=== PATIENT | female | born 1950 | race Caucasian/White ===

== ENCOUNTER 2018-08-03 14:15 | Emergency (ER) | payer MEDICARE, BC ==
[2018-08-03] MEDS ORDERED: Sodium Chloride 0.9% 10 ML Syringe FLUSH PRN (14:36)
--- NOTE | 2018-08-03 15:03 | EDM.PDOC ---
ED HPI GENERAL MEDICAL PROBLEM - General Chief Complaint: General Stated Complaint: LOW HEMOGLOBIN Time Seen by Provider: 08/03/18 14:35 Source of Information: Reports: Patient, RN Notes Reviewed - History of Present Illness INITIAL COMMENTS - FREE TEXT/NARRATIVE: 67 year old female has been transferred here from clinic for further evaluation of anemia, dizziness, dyspnea and fatigue. She had been feeling more tired and fatigued for about the past 2 weeks. Was seen at [facility] last [place] 4 days ago by her provider, found to have hgb of 9.1. She than became more ill with watery diarrhea [place] evening last for about 2 days, now better today. She did have a follow up clinic visit today, hgb now down to 8.1. She is on coumadin with hx of mechanical heart valve replacement about 12 years ago. No recent black or tarry stools or obvious rectal bleeding. - Related Data Allergies Allergy/AdvReac Type Severity Reaction Status Date / Time codeine Allergy Hives Verified 08/03/18 14:31 lidocaine [From Lidoderm] Allergy Rash Verified 08/03/18 14:31 meperidine Allergy Hives Verified 08/03/18 14:31 penicillin V Allergy Cannot Verified 08/03/18 14:31 Remember prochlorperazine Allergy Respiratory Verified 08/03/18 14:31 Distress propoxyphene Allergy Hives Verified 08/03/18 14:31 fentanyl AdvReac Nausea and Verified 08/03/18 14:31 Vomiting sumatriptan AdvReac Nausea and Verified 08/03/18 14:31 Vomiting Home Meds: Home Meds Aspirin [Ecotrin] 81 mg PO DAILY 08/03/18 [History] Baclofen 20 mg PO BEDTIME 08/03/18 [History] Cholecalciferol (Vitamin D3) [Vitamin D3] 2,000 unit PO DAILY 08/03/18 [History] Cyanocobalamin (Vitamin B-12) [B-12] 1,000 mcg PO DAILY 08/03/18 [History] Escitalopram [Lexapro] 20 mg PO DAILY 08/03/18 [History] Fluticasone/Vilanterol [Breo Ellipta 100-25 MCG Inhalation Kit] 1 inh INH DAILY 08/03/18 [History] Wgjtbpuwln-Lhty-Sannofqzhq Ext 1 dose TOP DAILY 08/03/18 [History] Ondansetron [Ondansetron ODT] 4 mg PO Q6H 08/03/18 [History] Pantoprazole [ProTONIX] 40 mg PO BID 08/03/18 [History] Polyethylene Glycol [Polyox Wsr-301] 1 dose PO BEDTIME 08/03/18 [History] Warfarin [Coumadin] 5 mg PO DAILY 08/03/18 [History] clonazePAM [Klonopin] 2 mg PO DAILY PRN 08/03/18 [History] traMADol HCl [Tramadol HCl ER] 200 mg PO BEDTIME 08/03/18 [History] traMADol [Ultram] 100 mg PO TID 08/03/18 [History] Past Medical History Respiratory History: Reports: Asthma Gastrointestinal History: Reports: Other (See Below) Other Gastrointestinal History: abdominal pain Genitourinary History: Reports: Other (See Below) Other Genitourinary History: urinary frequency Musculoskeletal History: Reports: Arthritis, Back Pain, Chronic - Past Surgical History Cardiovascular Surgical History: Reports: Other (See Below) Other Cardiovascular Surgeries/Procedures: mechanical aortic valve placement GI Surgical History: Reports: Appendectomy, Other (See Below) Other GI Surgeries/Procedures: esophagus stretching Musculoskeletal Surgical History: Reports: Other (See Below) Other Musculoskeletal Surgeries/Procedures:: back surgery x3 Social & Family History - Tobacco Use Smoking Status *Q: Never Smoker Second Hand Smoke Exposure: No - Caffeine Use Caffeine Use: Reports: None - Recreational Drug Use Recreational Drug Use: No ED ROS GENERAL - Review of Systems Review Of Systems: See Below Constitutional: Denies: Fever, Chills, Diaphoresis HEENT: Denies: Throat Pain Respiratory: Reports: Shortness of Breath Cardiovascular: Denies: Chest Pain Endocrine: Reports: Fatigue GI/Abdominal: Reports: Diarrhea (for the last several days). Denies: Abdominal Pain, Nausea, Vomiting Musculoskeletal: Denies: Shoulder Pain, Arm Pain, Back Pain Neurological: Reports: Dizziness (roche standing and walking) ED EXAM, GENERAL - Physical Exam Exam: See Below General Appearance: Alert, No Apparent Distress Eye Exam: Bilateral Eye: PERRL Nose: Normal Inspection Throat/Mouth: Normal Inspection Head: Atraumatic Neck: Supple Respiratory/Chest: No Respiratory Distress, Lungs Clear, Normal Breath Sounds Cardiovascular: Regular Rate, Rhythm GI/Abdominal: Soft, Tender (mild tenderness L and R lower abd. ) Rectal (Female) Exam: Other (brown stool, strongly heme positive) Back Exam: No: CVA Tenderness (L), CVA Tenderness (R) Extremities: No: Pedal Edema, Leg Pain Neurological: Alert, Oriented, No Motor/Sensory Deficits Skin Exam: Pallor EKG INTERPRETATION EKG Date: 08/03/18 Rhythm: NSR [place]: Normal P-Wave: Present QRS: Normal ST-T: Normal Course - Vital Signs Last Recorded V/S: Last Vital Signs Temp 97.9 F 08/03/18 14:29 Pulse 83 08/03/18 14:29 Resp 18 08/03/18 14:29 BP 134/53 L 08/03/18 14:29 Pulse Ox 97 08/03/18 14:29 - Orders/Labs/Meds Orders: Active Orders 24 hr Category Date Time Status EKG 12 Lead [EKG Documentation Completion] [RC] STAT Care 08/03/18 14:39 Active Peripheral IV Care [RC] . DIRECTED Care 08/03/18 14:39 Active Chest 1V Frontal [CR] Stat Exams 08/03/18 15:07 Taken Peripheral IV Insertion Adult [OM.PC] Stat Oth 08/03/18 14:39 Ordered Labs: Laboratory Tests 08/03/18 08/03/18 08/03/18 Range/Units 15:05 15:05 15:05 WBC 4.88 (3.98-10.04) K/mm3 RBC 3.22 L (3.98-5.22) M/mm3 Hgb 8.1 L (11.2-15.7) gm/L Hct 27.4 L (34.1-44.9) % MCV 85.1 (79.4-94.8) fl MCH 25.2 L (25.6-32.2) pg MCHC 29.6 L (32.2-35.5) g/dl RDW Std Deviation 47.5 H (36.4-46.3) fL Plt Count 373 H (182-369) K/mm3 MPV 9.3 L (9.4-12.3) fl Neut % (Auto) 71.8 H (34.0-71.1) % Lymph % (Auto) 16.2 L (19.3-51.7) % [place] % (Auto) 10.0 (4.7-12.5) % Eos % (Auto) 1.2 (0.7-5.8) Baso % (Auto) 0.6 (0.1-1.2) % Neut # (Auto) 3.50 (1.56-6.13) K/mm3 Lymph # (Auto) 0.79 L (1.18-3.74) K/mm3 [place] # (Auto) 0.49 H (0.24-0.36) K/mm3 Eos # (Auto) 0.06 (0.04-0.36) K/mm3 Baso # (Auto) 0.03 (0.01-0.08) K/mm3 Manual Slide Review Abnormal smear PT (9.5-12.1) SECONDS INR Sodium 143 (136-145) mEq/L Potassium 4.0 (3.5-5.1) mEq/L Chloride 106 (98-107) mEq/L Carbon Dioxide 30 (21-32) mEq/L Anion Gap 11.0 (5-15) BUN 15 (7-18) mg/dL Creatinine 0.8 (0.55-1.02) mg/dL Est Cr Clr Drug Dosing 64.76 mL/min Estimated GFR (MDRD) > 60 (>60) mL/min BUN/Creatinine Ratio 18.8 H (14-18) Glucose 98 (80-115) mg/dL Calcium 8.7 (8.5-10.1) mg/dL Total Bilirubin 0.3 (0.2-1.0) mg/dL AST 22 (15-37) U/L ALT 21 (14-59) U/L Alkaline Phosphatase 80 (46-116) U/L Total Protein 6.3 L (6.4-8.2) g/dl Albumin 3.2 L (3.4-5.0) g/dl Globulin 3.1 gm/dL Albumin/Globulin Ratio 1.0 (1-2) Blood Type B POSITIVE Gel Antibody Screen Negative 08/03/18 08/03/18 Range/Units 15:05 18:25 WBC 4.38 (3.98-10.04) K/mm3 RBC 3.25 L (3.98-5.22) M/mm3 Hgb 8.1 L (11.2-15.7) gm/L Hct 27.6 L (34.1-44.9) % MCV 84.9 (79.4-94.8) fl MCH 24.9 L (25.6-32.2) pg MCHC 29.3 L (32.2-35.5) g/dl RDW Std Deviation 47.4 H (36.4-46.3) fL Plt Count 380 H (182-369) K/mm3 MPV 8.8 L (9.4-12.3) fl Neut % (Auto) 65.0 (34.0-71.1) % Lymph % (Auto) 21.9 (19.3-51.7) % [place] % (Auto) 9.8 (4.7-12.5) % Eos % (Auto) 2.1 (0.7-5.8) Baso % (Auto) 0.7 (0.1-1.2) % Neut # (Auto) 2.85 (1.56-6.13) K/mm3 Lymph # (Auto) 0.96 L (1.18-3.74) K/mm3 [place] # (Auto) 0.43 H (0.24-0.36) K/mm3 Eos # (Auto) 0.09 (0.04-0.36) K/mm3 Baso # (Auto) 0.03 (0.01-0.08) K/mm3 Manual Slide Review Abnormal smear PT 19.3 H (9.5-12.1) SECONDS INR 1.79 Sodium (136-145) mEq/L Potassium (3.5-5.1) mEq/L Chloride (98-107) mEq/L Carbon Dioxide (21-32) mEq/L Anion Gap (5-15) BUN (7-18) mg/dL Creatinine (0.55-1.02) mg/dL Est Cr Clr Drug Dosing mL/min Estimated GFR (MDRD) (>60) mL/min BUN/Creatinine Ratio (14-18) Glucose (80-115) mg/dL Calcium (8.5-10.1) mg/dL Total Bilirubin (0.2-1.0) mg/dL AST (15-37) U/L ALT (14-59) U/L Alkaline Phosphatase (46-116) U/L Total Protein (6.4-8.2) g/dl Albumin (3.4-5.0) g/dl Globulin gm/dL Albumin/Globulin Ratio (1-2) Blood Type Gel Antibody Screen Meds: Medications Discontinued Medications Generic Name Dose Route Start Last Admin Trade Name Peter PRN Reason Stop Dose Admin Sodium Chloride 10 ml 08/03/18 14:36 08/03/18 15:08 Saline Flush FLUSH 10 ml ASDIRECTED PRN Administration Keep Vein Open - Re-Assessments/Exams Free Text/Narrative Re-Assessment/Exam: 08/03/18 18:[address] Mina, Hospitalist flight communications officer. He strongly advises transfer to [facility] to higher level of care with regard to GI Bleed, anemia with hgb of 8.1, mechanical heart valve and on coumadin. Was planning to send ground ambulance, patient and her are refusing that. She does not want him having to drive alone to [place]. Risks of bleeding en route, shock, even exaplained. Will have her sign out AMA regarding the transfer to [facility]. Called [facility] initially. They are on complete diversion. have called [facility], Dr Aburto, Hospitalist accepting Physician for direct admission. Departure - Departure Time of Disposition: 17:36 Disposition: DC/Tfer to Acute Hospital 02 Condition: Fair Clinical Impression: Mechanical heart valve present GI hemorrhage Qualifiers: GI bleed type/associated pathology: unspecified gastrointestinal hemorrhage type Qualified Code(s): K92.2 - Gastrointestinal hemorrhage, unspecified Anemia Qualifiers: Anemia type: unspecified type Qualified Code(s): D64.9 - Anemia, unspecified - Discharge Information Instructions: Anemia, Gastrointestinal Bleeding, [id number] Referrals: Donya Rubio MD [Primary Care Provider] - Forms: ED Department Discharge Additional Instructions: We have asked you to go by ground ambulance for your safety for the transfer to [facility]. You and your are choosing to go by private vehicle. We have had you sign out AMA after explaining the risks of going by private vehicle. Go immedicately to [facility] ED, they will be expecting you for direct admission, Dr Prieto, Hospitalist accepting Physician. - My Orders Last 24 Hours: My Active Orders 08/03/18 14:39 EKG 12 Lead [EKG Documentation Completion] [RC] STAT Peripheral IV Care [RC] . DIRECTED Peripheral IV Insertion Adult [OM.PC] Stat 08/03/18 15:07 Chest 1V Frontal [CR] Stat - Assessment/Plan Last 24 Hours: My Active Orders 08/03/18 14:39 EKG 12 Lead [EKG Documentation Completion] [RC] STAT Peripheral IV Care [RC] . DIRECTED Peripheral IV Insertion Adult [OM.PC] Stat 08/03/18 15:07 Chest 1V Frontal [CR] Stat
--- NOTE | 2018-08-04 07:00 | CR ---
Chest: Portable view of the chest was obtained. Comparison: Prior chest x-ray of 07/30/16. Heart size is normal. Tortuous thoracic aorta is seen. Previous sternotomy is noted. Prosthetic heart valve is seen. Cervical spine surgery is seen. Lungs are clear with no acute parenchymal change. Impression: 1. Incidental findings. Nothing acute is identified on portable chest x-ray. Diagnostic code #2
== END 2018-08-03 18:43 ==
LOC: JD.ED 14:15
DX: K92.2 Gastrointestinal hemorrhage, unspecified (principal); J45.909 Unspecified asthma, uncomplicated; D64.9 Anemia, unspecified; Z95.4 Presence of other heart-valve replacement; Z88.5 Allergy status to narcotic agent; Z88.8 Allergy status to other drugs, medicaments and biological substances; Z88.0 Allergy status to penicillin; Z79.899 Other long term (current) drug therapy; Z79.82 Long term (current) use of aspirin
CPT/HCPCS: 36415; 71045; 71045-26; 80053; 85025; 85610; 86850; 86900; 86901; 93005; 93010; 99284; 99284-25

== ENCOUNTER 2019-07-13 08:06 | Day surgery (SDC) | payer MEDICARE, BC ==
--- NOTE | 2019-07-13 07:25 | PCM.PREANE ---
Preanesthetic Assessment - Anesthesia/Transfusion/Family Hx Anesthesia History: Prior Anesthesia Without Reaction Family History of Anesthesia Reaction: No Transfusion History: Prior Transfusion Without Reaction Intubation History: Unknown - Review of Systems General: No Symptoms Pulmonary: No Symptoms (asthma-last used inhaler two days ago.) Cardiovascular: No Symptoms (H/O: aortic valve replacement 2006), Chest Pain ( chronic/denies any chest pain today), Palpitations, Dyspnea on Exertion Gastrointestinal: Constipation, Difficulty Swallowing Neurological: No Symptoms (chronic back pain:11/10), Headache (migraines History of....) Other: Reports: Easy Bleeding (watermelon inspector anticoagulation therapy noted:), Easy Bruising, Sinus Problem (+), Neck Pain (chronic/cervical radiculitis/cervical fusion 2007), Depression, Anxiety - Physical Assessment NPO Status Date: 07/12/19 NPO Status Time: 22:00 Vital Signs: HR:72 BP:133/60 Resp:16 Temp:98 Sat:98% Height: 1.68 m Weight: 81.647 kg ASA Class: 3 Mental Status: Alert & Oriented x3 Airway Class: Mallampati = 2 Dentition: Reports: Normal Dentition, Missing Tooth/Teeth, Caries Thyro-Mental Finger Breadths: 3 Mouth Opening Finger Breadths: 3 ROM/Head Extension: Full Lungs: Clear to Auscultation, Normal Respiratory Effort Cardiovascular: Regular Rate, Regular Rhythm, No Murmurs - Lab Values: All labs reviewed and noted and within acceptable ranges to proceed with scheduled procedure. - Imaging/EKG Impressions: EKG: SR rate=70, borderline QT interval. Echocardiogram: Preserved LV function - Allergies Allergies/Adverse Reactions: Allergies Allergy/AdvReac Type Severity Reaction Status Date / Time acetaminophen Allergy Nausea and Verified 07/12/19 13:30 [From Darvocet-N] Vomiting codeine Allergy Hives Verified 07/12/19 13:30 lidocaine [From Lidoderm] Allergy Rash Verified 07/12/19 13:30 meperidine Allergy Hives Verified 07/12/19 13:30 penicillin V Allergy Cannot Verified 07/12/19 13:30 Remember polyethylene glycol Allergy Nausea and Verified 07/12/19 13:30 [From Golytely] Vomiting polyethylene glycol 3350 Allergy Nausea and Verified 07/12/19 13:30 [From Golytely] Vomiting potassium chloride Allergy Nausea and Verified 07/12/19 13:30 [From Golytely] Vomiting prochlorperazine Allergy Respiratory Verified 07/12/19 13:30 Distress propoxyphene Allergy Hives Verified 07/12/19 13:30 sodium [From Golytely] Allergy Nausea and Verified 07/12/19 13:30 Vomiting sodium bicarbonate Allergy Nausea and Verified 07/12/19 13:30 [From Golytely] Vomiting sodium chloride Allergy Nausea and Verified 07/12/19 13:30 [From Golytely] Vomiting sodium sulfate Allergy Nausea and Verified 07/12/19 13:30 [From Golytely] Vomiting fentanyl AdvReac Nausea and Verified 07/12/19 13:30 Vomiting sumatriptan AdvReac Nausea and Verified 07/12/19 13:30 Vomiting - Anesthesia Plan Pre-Op Medication Ordered: None - Acknowledgements Anesthesia Type Planned: MAC Pt an Appropriate Candidate for the Planned Anesthesia: Yes Alternatives and Risks of Anesthesia Discussed w Pt/Guardian: Yes Pt/Guardian Understands and Agrees with Anesthesia Plan: Yes PreAnesthesia Questionnaire HEENT History: Reports: Impaired Vision Cardiovascular History: Reports: Angina, High Cholesterol, Other (See Below) Other Cardiovascular History: aortic valve replacement, palpitations Respiratory History: Reports: Asthma Gastrointestinal History: Reports: Other (See Below) Other Gastrointestinal History: abdominal pain, esophageal spasm, dysphagia, constipation Genitourinary History: Reports: Other (See Below) Other Genitourinary History: urinary frequency SORT SUPERVISOR History: Reports: None Musculoskeletal History: Reports: Arthritis, Back Pain, Chronic, Neck Pain, Chronic, Osteoarthritis Other Musculoskeletal History: restless leg syndrome, carpal tunnel syndrome, shoulder pain Neurological History: Reports: Migraines Other Neuro History: cervical radiculitis, cervical and lumbar fusion, laminectomy discectomy Psychiatric History: Reports: Anxiety Endocrine/Metabolic History: Reports: Osteopenia Hematologic History: Reports: None Immunologic History: Reports: None Oncologic (Cancer) History: Reports: None Dermatologic History: Reports: None - Infectious Disease History Infectious Disease History: Reports: C-Difficile - Past Surgical History HEENT Surgical History: Reports: Adenoidectomy, Tonsillectomy Cardiovascular Surgical History: Reports: Valve Replacement, Other (See Below) Other Cardiovascular Surgeries/Procedures: mechanical aortic valve placement Respiratory Surgical History: Reports: None GI Surgical History: Reports: Appendectomy, Colonoscopy, EGD, Hernia Repair/ Other, Other (See Below) Other GI Surgeries/Procedures: esophagus stretching Female Surgical History: Reports: Hysterectomy Male Surgical History: Reports: None Endocrine Surgical History: Reports: None Musculoskeletal Surgical History: Reports: Carpal Tunnel, Other (See Below) Other Musculoskeletal Surgeries/Procedures:: back surgery x3 Oncologic Surgical History: Reports: None Dermatological Surgical History: Reports: None - SUBSTANCE USE Smoking Status *Q: Never Smoker Recreational Drug Use History: No - HOME MEDS Home Medications: Home Meds Aspirin [Ecotrin EC] 81 mg PO DAILY 08/03/18 [History] Cholecalciferol (Vitamin D3) [Vitamin D3] 2,000 unit PO DAILY 08/03/18 [History] Escitalopram [Lexapro] 20 mg PO DAILY 08/03/18 [History] Fluticasone/Vilanterol [Breo Ellipta 100-25 MCG Inhalation Kit] 1 inh INH DAILY 08/03/18 [History] Kipfqpnupm-Dpjl-Ptdmtxzfyc Ext 1 dose TOP DAILY 08/03/18 [History] Warfarin [Coumadin] 5 mg PO SUMOTUWETHSA 08/03/18 [History] clonazePAM [Klonopin] 2 mg PO BEDTIME PRN 08/03/18 [History] traMADol HCl [Tramadol HCl ER] 200 mg PO BEDTIME 08/03/18 [History] Dicyclomine [Bentyl] 20 mg PO QID 07/12/19 [History] Fexofenadine [Mariam] 180 mg PO DAILY 07/12/19 [History] Fluticasone Propionate [Flonase] 1 dose NASBOTH DAILY 07/12/19 [History] LORazepam [Ativan] 0.5 mg PO DAILY 07/12/19 [History] Lactobacillus Acidophilus [Probiotic] 1 cap PO DAILY 07/12/19 [History] Warfarin [Coumadin] 2.5 mg PO FR 07/12/19 [History] cycloSPORINE [Restasis] 1 dose EYEBOTH DAILY 07/12/19 [History] polyethylene glycoL 3350 [MiraLAX] 1 dose PO DAILY 07/12/19 [History] Enoxaparin [Lovenox] 80 mg SUBCUT BID 07/13/19 [History] - CURRENT (IN HOUSE) MEDS Current Meds: Current Medications Lactated Ringer's (Ringers, Lactated) 1,000 mls @ 125 mls/hr IV ASDIRECTED ALISON Stop: 07/13/19 23:00 Sodium Chloride (Saline Flush) 10 ml FLUSH ASDIRECTED PRN PRN Reason: Keep Vein Open Stop: 07/13/19 18:00
[~2019-07-13 08:06] MED LIST: Lactated Ringers 1,000 ML IV SCH; Sodium Chloride 0.9% 10 ML Syringe FLUSH PRN
[2019-07-13] MEDS ORDERED: Propofol 200 MG/20 ML SDV ONE ×2 (09:30→09:57)
[2019-07-13] MEDS ORDERED: fentaNYL 100 MCG/2 ML SDV ONE (09:31)
[2019-07-13] MEDS ORDERED: Midazolam 1 MG/ML 2 ML SDV ONE (09:31)
--- NOTE | 2019-07-13 10:36 | PCM.OPNOTE ---
- General Post-Op/Procedure Note Date of Surgery/Procedure: 07/13/19 Operative Procedure(s): EGD and colonoscopy Findings: 1. Gastritis with hemorrhage 2. Duodenitis 3. Diverticulosis Pre Op Diagnosis: Dysphasia and positive fecal immunochemical test Post-Op Diagnosis: Same Anesthesia Technique: LESLY Primary Surgeon: Reva Marquez Anesthesia Provider: Joe Marin Pathology: 1. Duodenal biopsy 2. Gastric antrum biopsy Fluid Replacement, Intraop: 900 Output, Urine Amount: 0 EBL in mLs: 0 Complications: none apparent Condition: Good
--- NOTE | 2019-07-13 10:38 | PCM.PRNOTE ---
- Free Text/Narrative Note: Operative Report Date of Procedure: July 13, 2019 Pre Op Diagnosis: Dysphagia and positive FIT test Post-Op Diagnosis: same Operative Procedures: 1. EGD with biopsy 2. Colonoscopy to the cecum with biopsy Primary Surgeon: Reva Marquez MD Anesthesia Provider: Joe Marin CRNA Anesthesia Technique: MAC IV Fluid Replacement, Intraop: 900cc crystalloid Output, Urine Amount: 0cc EBL in mLs: 0cc Findings: 1. Gastritis with hemorrhage 2. Duodenitis 3. Diverticulosis Specimens: 1. Duodenal biopsy 2. Gastric antrum biopsy Drain/Tubes: None Indication: The patient is an 68-year-old lady who presented to the clinic with dysphagia and positive FIT test. The patient reported symptoms of aphasia to meats. She does report a history of multiple esophageal dilations. The patient was consented for a diagnostic EGD with possible balloon dilation and colonoscopy. Risks of bleeding, and perforation were discussed, and the patient agreed to the risks and wished to proceed. Description of the procedure: The patient was taken back to the endoscopy suite, and placed in the left lateral decubitus position. A bite block was placed. The patient was sedated with MAC anesthesia. The Olympus video endoscope was inserted into the oropharynx and guided under direct vision into the esophagus, stomach, and duodenum. The duodenal bulb and second portion of the duodenum were remarkable for erythema and formation. Biopsies were taken with a cold biopsy forceps. The gastric antrum was inspected and cold biopsy forceps were used to take tissue samples for H. pylori. There was gastritis noted in the antrum and throughout the stomach. The scope was withdrawn to the stomach and retroflexed. There was no increased fluid, food or secretions in the upper gastrointestinal tract. There were areas of punctate hemorrhage in the cardia. No erosions or ulcers were noted. The scope was withdrawn to the esophagus. No Barretts esophagus changes were noted. The endoscope was then withdrawn Next, anorectal examination was performed. No lesions, masses or hemorrhoids were noted externally or on palpation. The scope was placed into the rectum and advanced to cecum. Upon reaching the cecum, and the patients cecum was entered. There was moderate tortuosity of the colon especially in the sigmoid. Abdominal pressure was placed manually to aid completion of the colonoscopy. The ileocecal valve was well visualized and the appendiceal orifice identified. At this point, the scope was slowly withdrawn, paying attention to the mucosa. The patient had excellent bowel prep, 95% of the mucosa was visible. Severe diverticulosis in the sigmoid colon was noted. No additional abnormalities were found. In the rectum, scope was retroflexed and some hemorrhoidal tissue was noted. The scope was placed back in the lumen and excess air was aspirated. The scope was removed. The patient tolerated the procedure very well. Complications: None apparent Condition: The patient was transported to PACU in stable condition. Reva Marquez MD General Surgery
--- NOTE | 2019-07-13 10:40 | PCM48HPAN ---
Post Anesthesia Note - EVALUATION WITHIN 48HRS OF ANESTHETIC Vital Signs in Normal Range: Yes Patient Participated in Evaluation: Yes Respiratory Function Stable: Yes Airway Patent: Yes Cardiovascular Function Stable: Yes Hydration Status Stable: Yes Pain Control Satisfactory: Yes Nausea and Vomiting Control Satisfactory: Yes Mental Status Recovered: Yes Vital Signs: Last Vital Signs Temp 36.7 C 07/13/19 08:10 Pulse 72 07/13/19 08:10 Resp 16 07/13/19 08:10 BP 133/60 07/13/19 08:10 Pulse Ox 98 07/13/19 08:10 - COMMENTS/OBSERVATIONS Free Text/Narrative:: no anesthesia complications noted
== END 2019-07-13 11:30 | disposition home or self-care (01) ==
LOC: JD.SDS 08:06
PROVIDERS: ATTEND Surgery
DX: K29.71 Gastritis, unspecified, with bleeding (principal); K57.31 Diverticulosis of large intestine without perforation or abscess with bleeding; K29.81 Duodenitis with bleeding; K31.89 Other diseases of stomach and duodenum; J45.909 Unspecified asthma, uncomplicated; K64.9 Unspecified hemorrhoids; E66.9 Obesity, unspecified; F32.9 Major depressive disorder, single episode, unspecified; Z79.899 Other long term (current) drug therapy; E78.5 Hyperlipidemia, unspecified; Z79.01 Long term (current) use of anticoagulants; Z88.0 Allergy status to penicillin; Z88.5 Allergy status to narcotic agent; Z88.8 Allergy status to other drugs, medicaments and biological substances; Z98.890 Other specified postprocedural states; Z68.29 Body mass index [BMI] 29.0-29.9, adult; Z90.49 Acquired absence of other specified parts of digestive tract
CPT/HCPCS: 36415; 43239; 45380; 85610; J2250; J2704; J7120; 00813; 88305; J3010

== ENCOUNTER 2020-01-19 11:58 | Emergency (ER) | payer MEDICARE, BC ==
[2020-01-19] MEDS ORDERED: Sodium Chloride 0.9% 10 ML Syringe FLUSH PRN (12:41)
--- NOTE | 2020-01-19 12:42 | EDM.PDOC ---
ED HPI GENERAL MEDICAL PROBLEM - General Chief Complaint: General Stated Complaint: COUMADIN LEVELS OFF Time Seen by Provider: 01/19/20 12:37 Source of Information: Reports: Patient, RN Notes Reviewed - History of Present Illness INITIAL COMMENTS - FREE TEXT/NARRATIVE: 69 year old female has had dark stools for about a week. More fatigued than usual. No bright blood. No chest pain or difficulty breathing. On coumadin for mechanical heart valve. Her INR has been high with recent reading of about 4.5. Hx of difficulty swallowing. Had a colonoscopy a few months ago. Lower Abdomen Pain Score (Numeric/FACES): 8 Throat Pain Score (Numeric/FACES): 8 - Related Data Allergies Allergy/AdvReac Type Severity Reaction Status Date / Time meperidine Allergy Severe Hives Verified 01/19/20 12:19 penicillin V Allergy Severe Cannot Verified 01/19/20 12:19 Remember prochlorperazine Allergy Severe Respiratory Verified 01/19/20 12:19 Distress propoxyphene Allergy Severe Hives Verified 01/19/20 12:19 codeine Allergy Hives Verified 07/12/19 13:30 lidocaine [From Lidoderm] Allergy Rash Verified 07/12/19 13:30 acetaminophen AdvReac Severe Nausea and Verified 01/19/20 12:19 [From Darvocet-N] Vomiting fentanyl AdvReac Severe Nausea and Verified 01/19/20 12:19 Vomiting polyethylene glycol AdvReac Severe Nausea and Verified 01/19/20 12:19 [From Golytely] Vomiting polyethylene glycol 3350 AdvReac Severe Nausea and Verified 01/19/20 12:19 [From Golytely] Vomiting potassium chloride AdvReac Severe Nausea and Verified 01/19/20 12:19 [From Golytely] Vomiting sodium [From Golytely] AdvReac Severe Nausea and Verified 01/19/20 12:19 Vomiting sodium bicarbonate AdvReac Nausea and Verified 07/13/19 11:28 [From Golytely] Vomiting sodium chloride AdvReac Nausea and Verified 07/13/19 11:28 [From Golytely] Vomiting sodium sulfate AdvReac Nausea and Verified 07/13/19 11:28 [From Golytely] Vomiting sumatriptan AdvReac Nausea and Verified 07/12/19 13:30 Vomiting Home Meds: Home Meds Aspirin [Ecotrin EC] 81 mg PO DAILY 08/03/18 [History] Cholecalciferol (Vitamin D3) [Vitamin D3] 2,000 unit PO DAILY 08/03/18 [History] Escitalopram [Lexapro] 20 mg PO DAILY 08/03/18 [History] Fluticasone/Vilanterol [Breo Ellipta 100-25 MCG Inhalation Kit] 1 inh INH DAILY 08/03/18 [History] Mudygolfyn-Xueu-Fumndtdkxu Ext 1 dose TOP DAILY 08/03/18 [History] Warfarin [Coumadin] 5 mg PO SUMOTUWETHSA 08/03/18 [History] clonazePAM [Klonopin] 2 mg PO BEDTIME PRN 08/03/18 [History] traMADol HCl [Tramadol HCl ER] 200 mg PO BEDTIME 08/03/18 [History] Dicyclomine [Bentyl] 20 mg PO QID 07/12/19 [History] Fexofenadine [Mariam] 180 mg PO DAILY 07/12/19 [History] Fluticasone Propionate [Flonase] 1 dose NASBOTH DAILY 07/12/19 [History] LORazepam [Ativan] 0.5 mg PO DAILY 07/12/19 [History] Lactobacillus Acidophilus [Probiotic] 1 cap PO DAILY 07/12/19 [History] Warfarin [Coumadin] 2.5 mg PO FR 07/12/19 [History] cycloSPORINE [Restasis] 1 dose EYEBOTH DAILY 07/12/19 [History] polyethylene glycoL 3350 [MiraLAX] 1 dose PO DAILY 07/12/19 [History] Enoxaparin [Lovenox] 80 mg SUBCUT BID 07/13/19 [History] Past Medical History HEENT History: Reports: Impaired Vision Cardiovascular History: Reports: Angina, High Cholesterol, Other (See Below) Other Cardiovascular History: aortic valve replacement, palpitations Respiratory History: Reports: Asthma Gastrointestinal History: Reports: Other (See Below) Other Gastrointestinal History: abdominal pain, esophageal spasm, dysphagia, constipation Genitourinary History: Reports: Other (See Below) Other Genitourinary History: urinary frequency FINISHING MANAGER History: Reports: None Musculoskeletal History: Reports: Arthritis, Back Pain, Chronic, Neck Pain, Chronic, Osteoarthritis Other Musculoskeletal History: restless leg syndrome, carpal tunnel syndrome, shoulder pain Neurological History: Reports: Migraines Other Neuro History: cervical radiculitis, cervical and lumbar fusion, laminectomy discectomy Psychiatric History: Reports: Anxiety Endocrine/Metabolic History: Reports: Osteopenia Hematologic History: Reports: None Immunologic History: Reports: None Oncologic (Cancer) History: Reports: None Dermatologic History: Reports: None - Infectious Disease History Infectious Disease History: Reports: C-Difficile - Past Surgical History HEENT Surgical History: Reports: Adenoidectomy, Tonsillectomy Cardiovascular Surgical History: Reports: Valve Replacement, Other (See Below) Other Cardiovascular Surgeries/Procedures: mechanical aortic valve placement Respiratory Surgical History: Reports: None GI Surgical History: Reports: Appendectomy, Colonoscopy, EGD, Hernia Repair/Other, Other (See Below) Other GI Surgeries/Procedures: esophagus stretching Female Surgical History: Reports: Hysterectomy Endocrine Surgical History: Reports: None Musculoskeletal Surgical History: Reports: Carpal Tunnel, Other (See Below) Other Musculoskeletal Surgeries/Procedures:: back surgery x3 Oncologic Surgical History: Reports: None Dermatological Surgical History: Reports: None Social & Family History - Tobacco Use Smoking Status *Q: Never Smoker - Caffeine Use Caffeine Use: Reports: Coffee - Recreational Drug Use Recreational Drug Use: No ED ROS GENERAL - Review of Systems Review Of Systems: See Below Constitutional: Denies: Fever, Chills, Diaphoresis HEENT: Reports: No Symptoms Respiratory: Denies: Shortness of Breath Cardiovascular: Denies: Chest Pain GI/Abdominal: Reports: Abdominal Pain (mild upper abd discomfort off and on), Melena. Denies: Hematemesis, Hematochezia Musculoskeletal: Reports: No Symptoms Skin: Reports: No Symptoms Neurological: Reports: No Symptoms ED EXAM, GENERAL - Physical Exam Exam: See Below General Appearance: Alert, No Apparent Distress Head: Atraumatic Neck: Supple Respiratory/Chest: No Respiratory Distress, Lungs Clear, Normal Breath Sounds Cardiovascular: Regular Rate, Rhythm GI/Abdominal: Soft, Non-Tender. No: Guarding Extremities: Normal Inspection, Normal Range of Motion Neurological: Alert, Oriented, No Motor/Sensory Deficits Skin Exam: Warm, Dry, Normal Color Course - Vital Signs Last Recorded V/S: Last Vital Signs Temp 97.4 F 01/19/20 12:23 Pulse 68 01/19/20 12:23 Resp 20 01/19/20 12:23 BP 157/71 H 01/19/20 12:23 Pulse Ox 97 01/19/20 12:23 Orthostatic Blood Pressure [ 127/77 Standing] Orthostatic Blood Pressure [ 137/84 Sitting] Orthostatic Blood Pressure [ 147/64 Supine] - Orders/Labs/Meds Orders: Active Orders 24 hr Category Date Time Status EKG 12 Lead [EKG Documentation Completion] [] STAT Care 01/19/20 13:11 Active Peripheral IV Care [RC] . DIRECTED Care 01/19/20 12:41 Active TYPE AND SCREEN [BBK] Stat Lab 01/19/20 12:40 Results Sodium Chloride 0.9% [Saline Flush] Med 01/19/20 12:41 Active 10 ml FLUSH ASDIRECTED PRN Peripheral IV Insertion Adult [OM.PC] Stat Oth 01/19/20 12:41 Ordered Medication Orders Sodium Chloride (Saline Flush) 10 ml FLUSH ASDIRECTED PRN PRN Reason: Keep Vein Open Last Admin: 01/19/20 13:49 Dose: 10 ml Documented by: APOLONIA Labs: Laboratory Tests 01/19/20 01/19/20 01/19/20 Range/Units 12:40 12:40 12:40 WBC 7.14 (3.98-10.04) K/mm3 RBC 4.05 (3.98-5.22) M/mm3 Hgb 12.7 (11.2-15.7) gm/dl Hct 39.5 (34.1-44.9) % MCV 97.5 H (79.4-94.8) fl MCH 31.4 (25.6-32.2) pg MCHC 32.2 (32.2-35.5) g/dl RDW Std Deviation 45.0 (36.4-46.3) fL Plt Count 308 (182-369) K/mm3 MPV 9.4 (9.4-12.3) fl Neut % (Auto) 81.8 H (34.0-71.1) % Lymph % (Auto) 9.2 L (19.3-51.7) % [place] % (Auto) 7.7 (4.7-12.5) % Eos % (Auto) 0.8 (0.7-5.8) Baso % (Auto) 0.4 (0.1-1.2) % Neut # (Auto) 5.83 (1.56-6.13) K/mm3 Lymph # (Auto) 0.66 L (1.18-3.74) K/mm3 [place] # (Auto) 0.55 H (0.24-0.36) K/mm3 Eos # (Auto) 0.06 (0.04-0.36) K/mm3 Baso # (Auto) 0.03 (0.01-0.08) K/mm3 Manual Slide Review Abnormal smear PT 45.3 H (9.7-11.7) SECONDS INR 4.36 Sodium 141 (136-145) mEq/L Potassium 4.0 (3.5-5.1) mEq/L Chloride 104 (98-107) mEq/L Carbon Dioxide 31 (21-32) mEq/L Anion Gap 10.0 (5-15) BUN 12 (7-18) mg/dL Creatinine 0.9 (0.55-1.02) mg/dL Est Cr Clr Drug Dosing 58.18 mL/min Estimated GFR (MDRD) > 60 (>60) mL/min BUN/Creatinine Ratio 13.3 L (14-18) Glucose 92 (80-115) mg/dL Calcium 8.6 (8.5-10.1) mg/dL Total Bilirubin 0.2 (0.2-1.0) mg/dL AST 22 (15-37) U/L ALT 18 (14-59) U/L Alkaline Phosphatase 80 (46-116) U/L Total Protein 7.0 (6.4-8.2) g/dl Albumin 3.6 (3.4-5.0) g/dl Globulin 3.4 gm/dL Albumin/Globulin Ratio 1.1 (1-2) Blood Type 01/19/20 Range/Units 12:40 WBC (3.98-10.04) K/mm3 RBC (3.98-5.22) M/mm3 Hgb (11.2-15.7) gm/dl Hct (34.1-44.9) % MCV (79.4-94.8) fl MCH (25.6-32.2) pg MCHC (32.2-35.5) g/dl RDW Std Deviation (36.4-46.3) fL Plt Count (182-369) K/mm3 MPV (9.4-12.3) fl Neut % (Auto) (34.0-71.1) % Lymph % (Auto) (19.3-51.7) % [place] % (Auto) (4.7-12.5) % Eos % (Auto) (0.7-5.8) Baso % (Auto) (0.1-1.2) % Neut # (Auto) (1.56-6.13) K/mm3 Lymph # (Auto) (1.18-3.74) K/mm3 [place] # (Auto) (0.24-0.36) K/mm3 Eos # (Auto) (0.04-0.36) K/mm3 Baso # (Auto) (0.01-0.08) K/mm3 Manual Slide Review PT (9.7-11.7) SECONDS INR Sodium (136-145) mEq/L Potassium (3.5-5.1) mEq/L Chloride (98-107) mEq/L Carbon Dioxide (21-32) mEq/L Anion Gap (5-15) BUN (7-18) mg/dL Creatinine (0.55-1.02) mg/dL Est Cr Clr Drug Dosing mL/min Estimated GFR (MDRD) (>60) mL/min BUN/Creatinine Ratio (14-18) Glucose (80-115) mg/dL Calcium (8.5-10.1) mg/dL Total Bilirubin (0.2-1.0) mg/dL AST (15-37) U/L ALT (14-59) U/L Alkaline Phosphatase (46-116) U/L Total Protein (6.4-8.2) g/dl Albumin (3.4-5.0) g/dl Globulin gm/dL Albumin/Globulin Ratio (1-2) Blood Type B POSITIVE Meds: Medications Generic Name Dose Route Start Last Admin Trade Name Freq PRN Reason Stop Dose Admin Sodium Chloride 10 ml 01/19/20 12:41 01/19/20 13:49 Saline Flush FLUSH 10 ml ASDIRECTED PRN Administration Keep Vein Open - Re-Assessments/Exams Free Text/Narrative Re-Assessment/Exam: 01/19/20 14:4Hgb 12.7, ortho's good. Have discussed with Jeanne Luong, have a reasonable plan, will follow up clinic Thursday. Departure - Departure Time of Disposition: 14:38 Disposition: Home, Self-Care 01 Condition: Fair Clinical Impression: GI hemorrhage Qualifiers: GI bleed type/associated pathology: unspecified gastrointestinal hemorrhage type Qualified Code(s): K92.2 - Gastrointestinal hemorrhage, unspecified - Discharge Information Referrals: Reva Marquez MD [Physician] - Forms: ED Department Discharge Additional Instructions: Drink plenty of water to maintain hydration. Hold coumadin for tonight and the next 2 days as recomended. See Jeanne at clinic next Thursday. 1:30 for labs, 2;30 appt. Return to ED as needed if sx worsening in any way. Sepsis Event Note (ED) - Evaluation Sepsis Screening Result: No Definite Risk - Focused Exam Vital Signs: Vital Signs Temp Pulse Resp BP Pulse Ox 01/19/20 12:23 97.4 F 68 20 157/71 H 97 - My Orders Last 24 Hours: My Active Orders 01/19/20 12:40 TYPE AND SCREEN [BBK] Stat 01/19/20 12:41 Peripheral IV Care [RC] . DIRECTED Sodium Chloride 0.9% [Saline Flush] 10 ml FLUSH ASDIRECTED PRN Peripheral IV Insertion Adult [OM.PC] Stat 01/19/20 13:11 EKG 12 Lead [EKG Documentation Completion] [RC] STAT - Assessment/Plan Last 24 Hours: My Active Orders 01/19/20 12:40 TYPE AND SCREEN [BBK] Stat 01/19/20 12:41 Peripheral IV Care [RC] . DIRECTED Sodium Chloride 0.9% [Saline Flush] 10 ml FLUSH ASDIRECTED PRN Peripheral IV Insertion Adult [OM.PC] Stat 01/19/20 13:11 EKG 12 Lead [EKG Documentation Completion] [RC] STAT
== END 2020-01-19 14:55 | disposition home or self-care (01) ==
LOC: JD.ED 11:58
DX: K92.2 Gastrointestinal hemorrhage, unspecified (principal); G43.909 Migraine, unspecified, not intractable, without status migrainosus; Z88.0 Allergy status to penicillin; Z88.8 Allergy status to other drugs, medicaments and biological substances; Z88.4 Allergy status to anesthetic agent; Z79.82 Long term (current) use of aspirin; Z79.899 Other long term (current) drug therapy; Z90.49 Acquired absence of other specified parts of digestive tract; Z90.710 Acquired absence of both cervix and uterus
CPT/HCPCS: 36415; 80053; 85025; 85610; 86850; 86900; 86901; 93005; 93010; 99283; 99285-25

== ENCOUNTER 2020-03-08 16:45 | Emergency (ER) | payer MEDICARE, BC ==
--- NOTE | 2020-03-08 18:05 | EDM.PDOC ---
ED HPI GENERAL MEDICAL PROBLEM - General Chief Complaint: Respiratory Problem Stated Complaint: DIFFICULTY BREATHING Time Seen by Provider: 03/08/20 17:05 Source of Information: Reports: Patient, RN Notes Reviewed History Limitations: Reports: No Limitations - History of Present Illness INITIAL COMMENTS - FREE TEXT/NARRATIVE: Patient is a 69-year-old female presenting to the emergency department with complaints of a 2 to 3-week history of shortness of breath and restless legs. She has been seen by her primary care provider on 2 occasions with the last visit being yesterday. She initially saw her provider 1 week ago. States she had blood work and a chest x-ray done. She was started on Lasix allopurinol for the treatment of congestive heart failure and restless legs. States she continues to feel short of breath despite these medications. She then saw her primary care provider 2 days ago. She had repeat blood work done which was sent over to our facility. On review of these results, her primary care provider ordered a D-dimer which was found to be normal at 0.44 as well as a pro BNP which was slightly elevated at 225. She also complains of some nausea and a sour taste in her mouth which has been causing her to have a decreased appetite. She has had intermittent chills but denies any known fever. She denies any vomiting, diarrhea, cough, or chest pain. She is had no swelling or redness to her legs. - Related Data Allergies Allergy/AdvReac Type Severity Reaction Status Date / Time meperidine Allergy Severe Hives Verified 01/19/20 12:19 penicillin V Allergy Severe Cannot Verified 01/19/20 12:19 Remember prochlorperazine Allergy Severe Respiratory Verified 01/19/20 12:19 Distress propoxyphene Allergy Severe Hives Verified 01/19/20 12:19 codeine Allergy Hives Verified 07/12/19 13:30 lidocaine [From Lidoderm] Allergy Rash Verified 07/12/19 13:30 acetaminophen AdvReac Severe Nausea and Verified 01/19/20 12:19 [From Darvocet-N] Vomiting fentanyl AdvReac Severe Nausea and Verified 01/19/20 12:19 Vomiting polyethylene glycol AdvReac Severe Nausea and Verified 01/19/20 12:19 [From Golytely] Vomiting polyethylene glycol 3350 AdvReac Severe Nausea and Verified 01/19/20 12:19 [From Golytely] Vomiting potassium chloride AdvReac Severe Nausea and Verified 01/19/20 12:19 [From Golytely] Vomiting sodium [From Golytely] AdvReac Severe Nausea and Verified 01/19/20 12:19 Vomiting sodium bicarbonate AdvReac Nausea and Verified 07/13/19 11:28 [From Golytely] Vomiting sodium chloride AdvReac Nausea and Verified 07/13/19 11:28 [From Golytely] Vomiting sodium sulfate AdvReac Nausea and Verified 07/13/19 11:28 [From Golytely] Vomiting sumatriptan AdvReac Nausea and Verified 07/12/19 13:30 Vomiting Home Meds: Home Meds Aspirin [Ecotrin EC] 81 mg PO DAILY 08/03/18 [History] Cholecalciferol (Vitamin D3) [Vitamin D3] 2,000 unit PO DAILY 08/03/18 [History] Escitalopram [Lexapro] 20 mg PO DAILY 08/03/18 [History] Fluticasone/Vilanterol [Breo Ellipta 100-25 MCG Inhalation Kit] 1 inh INH DAILY 08/03/18 [History] Hksgebwyyu-Otgm-Vjhmfujdnq Ext 1 dose TOP DAILY 08/03/18 [History] Warfarin [Coumadin] 5 mg PO SUMOTUWETHSA 08/03/18 [History] clonazePAM [Klonopin] 2 mg PO BEDTIME PRN 08/03/18 [History] traMADol HCl [Tramadol HCl ER] 200 mg PO BEDTIME 08/03/18 [History] Dicyclomine [Bentyl] 20 mg PO QID 07/12/19 [History] Fexofenadine [Mariam] 180 mg PO DAILY 07/12/19 [History] Fluticasone Propionate [Flonase] 1 dose NASBOTH DAILY 07/12/19 [History] LORazepam [Ativan] 0.5 mg PO DAILY 07/12/19 [History] Lactobacillus Acidophilus [Probiotic] 1 cap PO DAILY 07/12/19 [History] Warfarin [Coumadin] 2.5 mg PO FR 07/12/19 [History] cycloSPORINE [Restasis] 1 dose EYEBOTH DAILY 07/12/19 [History] polyethylene glycoL 3350 [MiraLAX] 1 dose PO DAILY 07/12/19 [History] Enoxaparin [Lovenox] 80 mg SUBCUT BID 07/13/19 [History] Potassium Chloride 10 meq PO DAILY #14 capsule.er 03/08/20 [Rx] Past Medical History HEENT History: Reports: Impaired Vision Cardiovascular History: Reports: Angina, High Cholesterol, Other (See Below) Other Cardiovascular History: aortic valve replacement, palpitations Respiratory History: Reports: Asthma Gastrointestinal History: Reports: Other (See Below) Other Gastrointestinal History: abdominal pain, esophageal spasm, dysphagia, constipation Genitourinary History: Reports: Other (See Below) Other Genitourinary History: urinary frequency [employer] EDUCATION INSTRU[employer] History: Reports: None Musculoskeletal History: Reports: Arthritis, Back Pain, Chronic, Neck Pain, Chronic, Osteoarthritis Other Musculoskeletal History: restless leg syndrome, carpal tunnel syndrome, shoulder pain Neurological History: Reports: Migraines Other Neuro History: cervical radiculitis, cervical and lumbar fusion, laminectomy discectomy Psychiatric History: Reports: Anxiety Endocrine/Metabolic History: Reports: Osteopenia Hematologic History: Reports: Anticoagulation Therapy Immunologic History: Reports: None Oncologic (Cancer) History: Reports: None Dermatologic History: Reports: None - Infectious Disease History Infectious Disease History: Reports: C-Difficile - Past Surgical History HEENT Surgical History: Reports: Adenoidectomy, Tonsillectomy Cardiovascular Surgical History: Reports: Valve Replacement, Other (See Below) Other Cardiovascular Surgeries/Procedures: mechanical aortic valve placement GI Surgical History: Reports: Appendectomy, Colonoscopy, EGD, Hernia Repair/Other, Other (See Below) Other GI Surgeries/Procedures: esophagus stretching Female Surgical History: Reports: Hysterectomy Musculoskeletal Surgical History: Reports: Carpal Tunnel, Other (See Below) Other Musculoskeletal Surgeries/Procedures:: back surgery x3 Social & Family History - Tobacco Use Tobacco Use Status *Q: Never Tobacco User - Caffeine Use Caffeine Use: Reports: None - Recreational Drug Use Recreational Drug Use: No ED ROS GENERAL - Review of Systems Review Of Systems: See Below Constitutional: Reports: No Symptoms. Denies: Fever, Chills, Weakness HEENT: Reports: No Symptoms. Denies: Rhinitis, Throat Pain, Vision Change Respiratory: Reports: Shortness of Breath. Denies: Wheezing, Pleuritic Chest Pain, Cough Cardiovascular: Reports: Dyspnea on Exertion. Denies: Chest Pain, Lightheadedness Endocrine: Reports: No Symptoms GI/Abdominal: Reports: Nausea. Denies: Abdominal Pain, Diarrhea, Vomiting : Reports: No Symptoms. Denies: Dysuria Musculoskeletal: Reports: No Symptoms Skin: Reports: No Symptoms Neurological: Reports: No Symptoms Psychiatric: Reports: No Symptoms Hematologic/Lymphatic: Reports: No Symptoms Immunologic: Reports: No Symptoms ED EXAM, GENERAL - Physical Exam Exam: See Below General Appearance: Alert, WD/WN, Anxious Eye Exam: Bilateral Eye: PERRL Neck: Normal Inspection, Supple, Non-Tender, Full Range of Motion Respiratory/Chest: No Respiratory Distress, Lungs Clear, Normal Breath Sounds, No Accessory Muscle Use, Chest Non-Tender Cardiovascular: Normal Peripheral Pulses, Regular Rate, Rhythm, No Edema, No Gallop, No JVD, No Murmur, No Rub GI/Abdominal: Normal Bowel Sounds, Soft, Non-Tender, No Organomegaly, No Distention, No Abnormal Bruit, No Mass Neurological: Alert, Oriented, CN II-XII Intact, Normal Cognition, Normal Gait, Normal Reflexes, No Motor/Sensory Deficits Psychiatric: Normal Affect, Anxious Skin Exam: Warm, Dry, Intact, Normal Color, No Rash Course - Vital Signs Last Recorded V/S: Last Vital Signs Temp 98.2 F 03/08/20 17:00 Pulse 87 03/08/20 17:00 Resp 20 03/08/20 17:00 BP 184/98 H 03/08/20 17:00 Pulse Ox 98 03/08/20 17:00 - Orders/Labs/Meds Orders: Active Orders 24 hr Category Date Time Status EKG Documentation Completion [RC] STAT Care 03/08/20 17:05 Active Chest 1V Frontal [CR] Stat Exams 03/08/20 17:05 Ordered CORONAVIRUS COVID-19 PCR PHL Routine Lab 03/08/20 18:23 Ordered Labs: Laboratory Tests 03/08/20 03/08/20 03/08/20 Range/Units 17:09 17:09 17:09 WBC 6.17 (3.98-10.04) K/mm3 RBC 3.99 (3.98-5.22) M/mm3 Hgb 11.2 D (11.2-15.7) gm/dl Hct 36.0 (34.1-44.9) % MCV 90.2 D (79.4-94.8) fl MCH 28.1 (25.6-32.2) pg MCHC 31.1 L (32.2-35.5) g/dl RDW Std Deviation 43.1 (36.4-46.3) fL Plt Count 360 (182-369) K/mm3 MPV 9.7 (9.4-12.3) fl Neut % (Auto) 70.1 (34.0-71.1) % Lymph % (Auto) 19.0 L (19.3-51.7) % [place] % (Auto) 9.4 (4.7-12.5) % Eos % (Auto) 0.8 (0.7-5.8) Baso % (Auto) 0.5 (0.1-1.2) % Neut # (Auto) 4.33 (1.56-6.13) K/mm3 Lymph # (Auto) 1.17 L (1.18-3.74) K/mm3 [place] # (Auto) 0.58 H (0.24-0.36) K/mm3 Eos # (Auto) 0.05 (0.04-0.36) K/mm3 Baso # (Auto) 0.03 (0.01-0.08) K/mm3 D-Dimer, Quantitative 0.53 H (0.19-0.50) mg/L Sodium 139 (136-145) mEq/L Potassium 3.1 L (3.5-5.1) mEq/L Chloride 99 (98-107) mEq/L Carbon Dioxide 29 (21-32) mEq/L Anion Gap 14.1 (5-15) BUN 20 H (7-18) mg/dL Creatinine 1.1 H (0.55-1.02) mg/dL Est Cr Clr Drug Dosing 45.82 mL/min Estimated GFR (MDRD) 49 (>60) mL/min BUN/Creatinine Ratio 18.2 H (14-18) Glucose 90 (80-115) mg/dL Calcium 9.0 (8.5-10.1) mg/dL Ferritin (8-252) ng/ml Total Bilirubin 0.3 (0.2-1.0) mg/dL AST 23 (15-37) U/L ALT 21 (14-59) U/L Alkaline Phosphatase 75 (46-116) U/L Lactate Dehydrogenase 322 H (81-234) U/L Troponin I < 0.017 (0.00-0.056) ng/mL C-Reactive Protein 0.6 (<1.0) mg/dL NT-Pro-B Natriuret Pep (0-125) pg/mL Total Protein 6.9 (6.4-8.2) g/dl Albumin 3.9 (3.4-5.0) g/dl Globulin 3.0 gm/dL Albumin/Globulin Ratio 1.3 (1-2) 03/08/20 03/08/20 Range/Units 17:09 17:09 WBC (3.98-10.04) K/mm3 RBC (3.98-5.22) M/mm3 Hgb (11.2-15.7) gm/dl Hct (34.1-44.9) % MCV (79.4-94.8) fl MCH (25.6-32.2) pg MCHC (32.2-35.5) g/dl RDW Std Deviation (36.4-46.3) fL Plt Count (182-369) K/mm3 MPV (9.4-12.3) fl Neut % (Auto) (34.0-71.1) % Lymph % (Auto) (19.3-51.7) % [place] % (Auto) (4.7-12.5) % Eos % (Auto) (0.7-5.8) Baso % (Auto) (0.1-1.2) % Neut # (Auto) (1.56-6.13) K/mm3 Lymph # (Auto) (1.18-3.74) K/mm3 [place] # (Auto) (0.24-0.36) K/mm3 Eos # (Auto) (0.04-0.36) K/mm3 Baso # (Auto) (0.01-0.08) K/mm3 D-Dimer, Quantitative (0.19-0.50) mg/L Sodium (136-145) mEq/L Potassium (3.5-5.1) mEq/L Chloride (98-107) mEq/L Carbon Dioxide (21-32) mEq/L Anion Gap (5-15) BUN (7-18) mg/dL Creatinine (0.55-1.02) mg/dL Est Cr Clr Drug Dosing mL/min Estimated GFR (MDRD) (>60) mL/min BUN/Creatinine Ratio (14-18) Glucose (80-115) mg/dL Calcium (8.5-10.1) mg/dL Ferritin 19 (8-252) ng/ml Total Bilirubin (0.2-1.0) mg/dL AST (15-37) U/L ALT (14-59) U/L Alkaline Phosphatase (46-116) U/L Lactate Dehydrogenase (81-234) U/L Troponin I (0.00-0.056) ng/mL C-Reactive Protein (<1.0) mg/dL NT-Pro-B Natriuret Pep 150 H (0-125) pg/mL Total Protein (6.4-8.2) g/dl Albumin (3.4-5.0) g/dl Globulin gm/dL Albumin/Globulin Ratio (1-2) - Re-Assessments/Exams Free Text/Narrative Re-Assessment/Exam: Patient is a 69-year-old female presenting to the emergency department with complaints of shortness of breath and restless legs over the last few weeks. She has been seen by her primary care provider a number of occasions. She has been started on Lasix for as well as ropinirole for restless legs. She states that this has not improved her symptoms. Blood work was completed 2 days ago again by her primary care provider. Results are in our computer system as they were sent to our lab. Her D-dimer was normal at 0.44 indicating that pulmonary embolism is not the cause of her shortness of breath nor does she have a DVT. Her proBNP was minimally elevated. Vital signs in triage were stable. Oxygen saturation was 98% on room air. She is not tachycardic. Lung sounds were clear to auscultation with no crackles or wheezes. She has no peripheral edema, or redness or warmth to her lower extremities. We will complete thorough work-up today including CBC, CMP, CRP, D-dimer, troponin, ferritin, LDH, chest x-ray, and EKG. 03/08/20 18:30 Patient's work-up was grossly unremarkable with the exception of her potassium being slightly low at 3.1. Her D-dimer was 0.53 which is a normal D-dimer when adjusted for age. proBNP is minimally elevated at 150. Chest x-ray was clear with no signs of pulmonary vascular congestion or pneumonias. EKG showed a normal sinus rhythm at 87 with no signs of ischemia. Discussed these findings with the patient. Recommend that she continue her medications as prescribed by her primary care provider. I went to start her on potassium 10 mEq daily for her low potassium, which is likely due to the Lasix that she recently started. We will give her her first dose this evening. Discussed with her the possibility that her subjective shortness of breath could be related to anxiety. She states she does have some issues with anxiety and that she has been recently started on a new medication for this. She feels that maybe her primary care provider needs to increase that. Recommend that she follow-up with her primary care provider in the next few days. We will Covid test her today as well given her complaints of feeling short of breath, slightly nauseous, and alterations in taste. Discharge instructions as documented. Departure - Departure Time of Disposition: 18:31 Disposition: Home, Self-Care 01 Condition: Good Clinical Impression: Shortness of breath - Discharge Information *PRESCRIPTION DRUG MONITORING PROGRAM REVIEWED*: No *COPY OF PRESCRIPTION DRUG MONITORING REPORT IN PATIENT DARRYL: No Prescriptions: Potassium Chloride 10 meq PO DAILY #14 capsule.er Instructions: Shortness of Breath, Adult, [id number] Referrals: Donya Rubio MD [Primary Care Provider] - Forms: ED Department Discharge Additional Instructions: You were seen in the emergency department today for shortness of breath and restless legs over the last few weeks. Your work-up included blood work, an EKG of your heart, and a chest x-ray. As we discussed, your work-up was found to be overall normal with the exception of your potassium being slightly low. This is likely due to the Lasix that she recently began taking. You received a first dose of a potassium supplement the emergency department. A prescription for potassium has been sent to her [facility] pharmacy. Take this medication as prescribed. A Covid test has been completed today. You will be notified when the results are available which is generally 24 to 72 hours. Recommend follow- up with your primary care provider early next week to discuss today's work-up as well as the possibility of an adjustment in your anxiety medication if needed. If you experience any new or worsening symptoms, please do not hesitate to return to the emergency department. Sepsis Event Note (ED) - Evaluation Sepsis Screening Result: No Definite Risk - Focused Exam Vital Signs: Vital Signs Temp Pulse Resp BP Pulse Ox 03/08/20 17:00 98.2 F 87 20 184/98 H 98 - My Orders Last 24 Hours: My Active Orders 03/08/20 17:05 EKG Documentation Completion [RC] STAT Chest 1V Frontal [CR] Stat 03/08/20 18:23 CORONAVIRUS COVID-19 PCR PHL Routine - Assessment/Plan Last 24 Hours: My Active Orders 03/08/20 17:05 EKG Documentation Completion [RC] STAT Chest 1V Frontal [CR] Stat 03/08/20 18:23 CORONAVIRUS COVID-19 PCR PHL Routine
[2020-03-08] MEDS ORDERED: Potassium Chloride 20 MEQ Tab.ER PO ONE (18:31)
--- NOTE | 2020-03-09 09:30 | CR ---
PROCEDURE INFORMATION: Exam: XR Chest, 1 View Exam date and time: 03/08/2020 5:50 PM Age: 69 years old Clinical indication: Shortness of breath TECHNIQUE: Imaging protocol: XR of the chest Views: 1 view. COMPARISON: CR Chest 1V Frontal 08/03/2018 3:07 PM FINDINGS: Lungs: The lungs are clear. Pleural space: No pleural effusion. No pneumothorax. Heart/Mediastinum: There has been an aortic valve replacement. The heart is not enlarged. Bones/joints: Status post median sternotomy. Postoperative change cervical spine and lumbar spine.No acute bony findings are identified. IMPRESSION: 1. Postoperative chest. 2. No acute findings. 3. Little change. Thank you for allowing us to participate in the care of your patient. Dictated and Authenticated by: Jay Jay Jameson MD 03/08/2020 7:47 PM Central Time ([place] & [place]) [place]
== END 2020-03-08 18:55 | disposition home or self-care (01) ==
LOC: JD.ED 16:45
DX: R06.02 Shortness of breath (principal); J45.909 Unspecified asthma, uncomplicated; M19.90 Unspecified osteoarthritis, unspecified site; Z20.828 Contact with and (suspected) exposure to other viral communicable diseases; Z88.5 Allergy status to narcotic agent; Z88.0 Allergy status to penicillin; Z88.6 Allergy status to analgesic agent; Z88.4 Allergy status to anesthetic agent; Z88.8 Allergy status to other drugs, medicaments and biological substances; Z79.01 Long term (current) use of anticoagulants; Z79.899 Other long term (current) drug therapy; Z79.82 Long term (current) use of aspirin
CPT/HCPCS: 36415; 71045; 80053; 82728; 83615; 83880; 84484; 85025; 85379; 86140; 93005; 99285; A9270; U0002; 99283

== ENCOUNTER 2020-08-11 12:31 | Emergency (ER) | payer MEDICARE, BC ==
[2020-08-11] MEDS ORDERED: Sodium Chloride 0.9% 1,000 ML IV STA (13:00)
[2020-08-11] MEDS ORDERED: Ondansetron 4 MG/2 ML SDV IVPUSH ONE (13:00)
[2020-08-11] MEDS ORDERED: Sodium Chloride 0.9% 10 ML Syringe FLUSH PRN (13:00)
[2020-08-11] MEDS ORDERED: cefTRIAXone 2 GM in Sodium Chloride 0.9% 100 ML IV ONE (13:01)
--- NOTE | 2020-08-11 14:18 | EDM.PDOC ---
ED HPI GENERAL MEDICAL PROBLEM - General Chief Complaint: Skin Complaint Stated Complaint: SKIN COMPLAINT/R HAND Time Seen by Provider: 08/11/20 12:41 Source of Information: Reports: Patient History Limitations: Reports: No Limitations - History of Present Illness INITIAL COMMENTS - FREE TEXT/NARRATIVE: The patient presents with right finger pain, swelling and redness. She said this all started about 2 weeks ago. The past few days the pain and swelling has gotten worse. She went to see Dr Tillman at our clinic. She did labs and started her on bactrim. She now has a fever, chills, and nausea. The redness is worse and it has traveled up her hand and there is streaking up her arm. She has no other Onset: Gradual Duration: Week(s): (2) Location: Reports: Upper Extremity, Right (index finger) Quality: Reports: Sharp Severity: Moderate Improves with: Reports: None Worsens with: Reports: None Associated Symptoms: Reports: Fever/Chills, Nausea/Vomiting. Denies: Chest Pain, Cough, Headaches, Shortness of Breath Right Finger-Index Pain Score (Numeric/FACES): 8 - Related Data Allergies Allergy/AdvReac Type Severity Reaction Status Date / Time meperidine Allergy Severe Hives Verified 08/11/20 12:47 penicillin V Allergy Severe Cannot Verified 08/11/20 12:47 Remember prochlorperazine Allergy Severe Respiratory Verified 08/11/20 12:47 Distress propoxyphene Allergy Severe Hives Verified 08/11/20 12:47 codeine Allergy Hives Verified 08/11/20 12:47 lidocaine [From Lidoderm] Allergy Rash Verified 08/11/20 12:47 acetaminophen AdvReac Severe Nausea and Verified 08/11/20 12:47 [From Darvocet-N] Vomiting fentanyl AdvReac Severe Nausea and Verified 08/11/20 12:47 Vomiting polyethylene glycol AdvReac Severe Nausea and Verified 08/11/20 12:47 [From Golytely] Vomiting polyethylene glycol 3350 AdvReac Severe Nausea and Verified 08/11/20 12:47 [From Golytely] Vomiting potassium chloride AdvReac Severe Nausea and Verified 08/11/20 12:47 [From Golytely] Vomiting sodium [From Golytely] AdvReac Severe Nausea and Verified 08/11/20 12:47 Vomiting sodium bicarbonate AdvReac Nausea and Verified 08/11/20 12:47 [From Golytely] Vomiting sodium chloride AdvReac Nausea and Verified 08/11/20 12:47 [From Golytely] Vomiting sodium sulfate AdvReac Nausea and Verified 08/11/20 12:47 [From Golytely] Vomiting sumatriptan AdvReac Nausea and Verified 08/11/20 12:47 Vomiting Home Meds: Home Meds Aspirin [Ecotrin EC] 81 mg PO DAILY 08/03/18 [History] Cholecalciferol (Vitamin D3) [Vitamin D3] 2,000 unit PO DAILY 08/03/18 [History] Fluticasone/Vilanterol [Breo Ellipta 100-25 MCG Inhalation Kit] 1 inh INH DAILY 08/03/18 [History] Vityslokjc-Cibl-Ukolaphwff Ext 1 dose TOP DAILY PRN 08/03/18 [History] clonazePAM [Klonopin] 2 mg PO BEDTIME 08/03/18 [History] traMADol HCl [Tramadol HCl ER] 200 mg PO BEDTIME 08/03/18 [History] Dicyclomine [Bentyl] 20 mg PO QID 07/12/19 [History] Fluticasone Propionate [Flonase] 1 puff NASBOTH DAILY 07/12/19 [History] cycloSPORINE [Restasis] 1 drop EYEBOTH BID 07/12/19 [History] polyethylene glycoL 3350 [MiraLAX] 17 gm PO DAILY 07/12/19 [History] Enoxaparin [Lovenox] 80 mg SUBCUT BID 07/13/19 [History] Potassium Chloride 10 meq PO DAILY #14 capsule.er 03/08/20 [Rx] Albuterol Sulfate [Albuterol Sulfate HFA] 1 puff IH Q4H PRN 08/11/20 [History] Calcium Carbonate [Calcium] 600 mg PO DAILY 08/11/20 [History] Fluconazole 150 mg PO ASDIRECTED 08/11/20 [History] Furosemide [Lasix] 10 mg PO DAILY 08/11/20 [History] Loratadine/Pseudoephedrine [Allergy Relief D-24Hr Tablet] 1 tab PO DAILY 08/11/20 [History] Ondansetron [Zofran] 4 mg SL Q6H PRN 08/11/20 [History] Venlafaxine [Effexor] 112.5 mg PO DAILY 08/11/20 [History] Warfarin [Coumadin] 4 mg PO DAILY 08/11/20 [History] rOPINIRole [Requip] 2 mg PO BEDTIME 08/11/20 [History] traMADol [Ultram] 50 mg PO TID PRN 08/11/20 [History] Past Medical History HEENT History: Reports: Impaired Vision Cardiovascular History: Reports: Angina, High Cholesterol, Other (See Below) Other Cardiovascular History: aortic valve replacement, palpitations Respiratory History: Reports: Asthma Gastrointestinal History: Reports: Other (See Below) Other Gastrointestinal History: abdominal pain, esophageal spasm, dysphagia, constipation Genitourinary History: Reports: Other (See Below) Other Genitourinary History: urinary frequency [employer] CONSERVATION SPECIALIST History: Reports: None Musculoskeletal History: Reports: Arthritis, Back Pain, Chronic, Neck Pain, Chronic, Osteoarthritis Other Musculoskeletal History: restless leg syndrome, carpal tunnel syndrome, shoulder pain Neurological History: Reports: Migraines Other Neuro History: cervical radiculitis, cervical and lumbar fusion, laminectomy discectomy Psychiatric History: Reports: Anxiety Endocrine/Metabolic History: Reports: Osteopenia Hematologic History: Reports: Anticoagulation Therapy Immunologic History: Reports: None Oncologic (Cancer) History: Reports: None Dermatologic History: Reports: None - Infectious Disease History Infectious Disease History: Reports: C-Difficile - Past Surgical History HEENT Surgical History: Reports: Adenoidectomy, Tonsillectomy Cardiovascular Surgical History: Reports: Valve Replacement, Other (See Below) Other Cardiovascular Surgeries/Procedures: mechanical aortic valve placement Respiratory Surgical History: Reports: None GI Surgical History: Reports: Appendectomy, Colonoscopy, EGD, Hernia Repair/Other, Other (See Below) Other GI Surgeries/Procedures: esophagus stretching Female Surgical History: Reports: Hysterectomy Endocrine Surgical History: Reports: None Musculoskeletal Surgical History: Reports: Carpal Tunnel, Other (See Below) Other Musculoskeletal Surgeries/Procedures:: back surgery x3 Oncologic Surgical History: Reports: None Dermatological Surgical History: Reports: None Social & Family History - Tobacco Use Tobacco Use Status *Q: Never Tobacco User Second Hand Smoke Exposure: No - Caffeine Use Caffeine Use: Reports: Coffee - Recreational Drug Use Recreational Drug Use: No ED ROS GENERAL - Review of Systems Review Of Systems: See Below Constitutional: Reports: Fever, Chills HEENT: Reports: No Symptoms Respiratory: Reports: No Symptoms Cardiovascular: Reports: No Symptoms Endocrine: Reports: No Symptoms GI/Abdominal: Reports: No Symptoms : Reports: No Symptoms Musculoskeletal: Reports: Other (Right index finger has redness, erythema and edema.) ED EXAM, SKIN/RASH Exam: See Below Exam Limited By: No Limitations General Appearance: Alert, No Apparent Distress Ears: Normal External Exam Nose: Normal Inspection Head: Atraumatic, Normocephalic Neck: Normal Inspection Respiratory/Chest: No Respiratory Distress, Lungs Clear, Normal Breath Sounds Cardiovascular: Regular Rate, Rhythm, No Edema, No Murmur GI/Abdominal: Soft, Non-Tender, No Organomegaly, No Mass Extremities: Other (Erythema and edema to the right index finger with 2 scabs to the dorsum of the finger. The erythema is in her hand and is streaking up her arm.) Course - Vital Signs Last Recorded V/S: Last Vital Signs Temp 97.6 F 08/11/20 12:42 Pulse 96 08/11/20 12:42 Resp 16 08/11/20 12:42 BP 136/66 08/11/20 12:42 Pulse Ox 98 08/11/20 12:42 - Orders/Labs/Meds Orders: Active Orders 24 hr Category Date Time Status Peripheral IV Care [RC] . DIRECTED Care 08/11/20 13:00 Active Fingers Second Digit Rt F6 [CR] Stat Exams 08/11/20 13:08 Taken CORONAVIRUS COVID-19 PB [MOLEC] Stat Lab 08/11/20 14:23 Received Sodium Chloride 0.9% [Saline Flush] Med 08/11/20 13:00 Active 10 ml FLUSH ASDIRECTED PRN ED Antiemetic Medication Reflex [OM.PC] Stat Oth 08/11/20 13:00 Ordered Peripheral IV Insertion Adult [OM.PC] Stat Oth 08/11/20 13:00 Ordered Medication Orders Sodium Chloride (Sodium Chloride 0.9% 10 Ml Syringe) 10 ml FLUSH ASDIRECTED PRN PRN Reason: Keep Vein Open Last Admin: 08/11/20 13:15 Dose: 10 ml Documented by: RON Labs: Laboratory Tests 08/11/20 08/11/20 08/11/20 Range/Units 13:00 13:00 13:00 WBC 13.79 H (3.98-10.04) K/mm3 RBC 4.12 (3.98-5.22) M/mm3 Hgb 10.7 L (11.2-15.7) gm/dl Hct 35.9 (34.1-44.9) % MCV 87.1 (79.4-94.8) fl MCH 26.0 (25.6-32.2) pg MCHC 29.8 L (32.2-35.5) g/dl RDW Std Deviation 64.3 H (36.4-46.3) fL Plt Count 387 H (182-369) K/mm3 MPV 9.2 L (9.4-12.3) fl Neut % (Auto) 85.2 H (34.0-71.1) % Lymph % (Auto) 5.7 L (19.3-51.7) % [place] % (Auto) 8.4 (4.7-12.5) % Eos % (Auto) 0.2 L (0.7-5.8) Baso % (Auto) 0.2 (0.1-1.2) % Neut # (Auto) 11.74 H (1.56-6.13) K/mm3 Lymph # (Auto) 0.79 L (1.18-3.74) K/mm3 [place] # (Auto) 1.16 H (0.24-0.36) K/mm3 Eos # (Auto) 0.03 L (0.04-0.36) K/mm3 Baso # (Auto) 0.03 (0.01-0.08) K/mm3 Manual Slide Review Abnormal smear ESR (0-20) mm/hr PT (9.7-12.0) SECONDS INR Sodium 141 (136-145) mEq/L Potassium 3.8 (3.5-5.1) mEq/L Chloride 103 (98-107) mEq/L Carbon Dioxide 28 (21-32) mEq/L Anion Gap 13.8 (5-15) BUN 14 (7-18) mg/dL Creatinine 1.0 (0.55-1.02) mg/dL Est Cr Clr Drug Dosing 50.41 mL/min Estimated GFR (MDRD) 55 (>60) mL/min BUN/Creatinine Ratio 14.0 (14-18) Glucose 95 (80-115) mg/dL Lactic Acid 1.2 (0.4-2.0) mmol/L Calcium 8.7 (8.5-10.1) mg/dL Total Bilirubin 0.5 (0.2-1.0) mg/dL AST 23 (15-37) U/L ALT 25 (14-59) U/L Alkaline Phosphatase 98 (46-116) U/L Total Protein 7.5 (6.4-8.2) g/dl Albumin 3.7 (3.4-5.0) g/dl Globulin 3.8 gm/dL Albumin/Globulin Ratio 1.0 (1-2) 08/11/20 08/11/20 Range/Units 13:00 13:00 WBC (3.98-10.04) K/mm3 RBC (3.98-5.22) M/mm3 Hgb (11.2-15.7) gm/dl Hct (34.1-44.9) % MCV (79.4-94.8) fl MCH (25.6-32.2) pg MCHC (32.2-35.5) g/dl RDW Std Deviation (36.4-46.3) fL Plt Count (182-369) K/mm3 MPV (9.4-12.3) fl Neut % (Auto) (34.0-71.1) % Lymph % (Auto) (19.3-51.7) % [place] % (Auto) (4.7-12.5) % Eos % (Auto) (0.7-5.8) Baso % (Auto) (0.1-1.2) % Neut # (Auto) (1.56-6.13) K/mm3 Lymph # (Auto) (1.18-3.74) K/mm3 [place] # (Auto) (0.24-0.36) K/mm3 Eos # (Auto) (0.04-0.36) K/mm3 Baso # (Auto) (0.01-0.08) K/mm3 Manual Slide Review ESR 27 H (0-20) mm/hr PT 31.9 H (9.7-12.0) SECONDS INR 3.05 Sodium (136-145) mEq/L Potassium (3.5-5.1) mEq/L Chloride (98-107) mEq/L Carbon Dioxide (21-32) mEq/L Anion Gap (5-15) BUN (7-18) mg/dL Creatinine (0.55-1.02) mg/dL Est Cr Clr Drug Dosing mL/min Estimated GFR (MDRD) (>60) mL/min BUN/Creatinine Ratio (14-18) Glucose (80-115) mg/dL Lactic Acid (0.4-2.0) mmol/L Calcium (8.5-10.1) mg/dL Total Bilirubin (0.2-1.0) mg/dL AST (15-37) U/L ALT (14-59) U/L Alkaline Phosphatase (46-116) U/L Total Protein (6.4-8.2) g/dl Albumin (3.4-5.0) g/dl Globulin gm/dL Albumin/Globulin Ratio (1-2) Meds: Medications Generic Name Dose Route Start Last Admin Trade Name Freq PRN Reason Stop Dose Admin Sodium Chloride 10 ml 08/11/20 13:00 08/11/20 13:15 Sodium Chloride 0.9% 10 Ml Syringe FLUSH 10 ml ASDIRECTED PRN Administration Keep Vein Open Discontinued Medications Generic Name Dose Route Start Last Admin Trade Name Freq PRN Reason Stop Dose Admin Ceftriaxone Sodium 2 gm/ 100 mls @ 200 mls/hr 08/11/20 13:01 08/11/20 13:13 Sodium Chloride IV 08/11/20 13:30 200 mls/hr ONETIME ONE Administration Sodium Chloride 1,000 mls @ 1,000 mls/hr 08/11/20 13:00 08/11/20 13:12 Normal Saline IV 08/11/20 13:59 1,000 mls/hr .BOLUS STA Administration Ondansetron HCl 4 mg 08/11/20 13:00 08/11/20 13:15 Ondansetron 4 Mg/2 Ml Sdv IVPUSH 08/11/20 13:01 4 mg ONETIME ONE Administration - Re-Assessments/Exams Free Text/Narrative Re-Assessment/Exam: 08/11/20 14:20 I ordered an IV NS, zofran 4mg IV, rocephin 2 grams IV, x-ray of her finger and labs. Her WBC is elevated at 13.79. Yesterday it was normal at 8. Her INR is 3.05. Her CMP looks good. Her lactic acid is normal. 08/11/20 14:33 She has an aortic mechanical valve. She is not septic but I am worried about her finger. She has streaking up her arm. Ortho may need to get involved and we do not have an orthopedic surgeon on today. I called [facility] in [place] and talked to the fleet operations manager surgeon Dr Clifford and he said send her to the ER and he will see her there. I wanted to send the patient by ambulance but they want to go by private vehicle. 08/11/20 14:45 Departure - Departure Time of Disposition: 14:50 Disposition: DC/Tfer to [facility] 02 Condition: Fair Clinical Impression: Infection of index finger Cellulitis Qualifiers: Site of cellulitis: extremity Site of cellulitis of extremity: upper extremity Laterality: right Qualified Code(s): L03.113 - Cellulitis of right upper limb - Discharge Information Referrals: Dayna Metz MD [Primary Care Provider] - Forms: ED Department Discharge Sepsis Event Note (ED) - Evaluation Sepsis Screening Result: Possible Sepsis Risk - Focused Exam Vital Signs: Vital Signs Temp Pulse Resp BP Pulse Ox 08/11/20 12:42 97.6 F 96 16 136/66 98 - My Orders Last 24 Hours: My Active Orders 08/11/20 13:00 Peripheral IV Care [RC] . DIRECTED Sodium Chloride 0.9% [Saline Flush] 10 ml FLUSH ASDIRECTED PRN ED Antiemetic Medication Reflex [OM.PC] Stat Peripheral IV Insertion Adult [OM.PC] Stat 08/11/20 13:08 Fingers Second Digit Rt F6 [CR] Stat 08/11/20 14:23 CORONAVIRUS COVID-19 PB [MOLEC] Stat - Assessment/Plan Last 24 Hours: My Active Orders 08/11/20 13:00 Peripheral IV Care [RC] . DIRECTED Sodium Chloride 0.9% [Saline Flush] 10 ml FLUSH ASDIRECTED PRN ED Antiemetic Medication Reflex [OM.PC] Stat Peripheral IV Insertion Adult [OM.PC] Stat 08/11/20 13:08 Fingers Second Digit Rt F6 [CR] Stat 08/11/20 14:23 CORONAVIRUS COVID-19 PB [MOLEC] Stat
--- NOTE | 2020-08-12 11:23 | CR ---
Right second finger: 3 views centered to the right second finger were obtained. Comparison: No prior finger study is available. Joint space narrowing is seen within the DIP and PIP joints. Soft tissue swelling appears to be present. No focal erosive change is seen. No bony erosion or dislocation is seen. No soft tissue air is seen. Impression: 1. Mild degenerative change. 2. Diffuse soft tissue swelling. Diagnostic code #3
== END 2020-08-11 15:20 ==
LOC: JD.ED 12:31
DX: L03.011 Cellulitis of right finger (principal); J45.909 Unspecified asthma, uncomplicated; Z88.0 Allergy status to penicillin; Z88.5 Allergy status to narcotic agent; Z88.4 Allergy status to anesthetic agent; Z88.8 Allergy status to other drugs, medicaments and biological substances; Z79.82 Long term (current) use of aspirin; Z79.899 Other long term (current) drug therapy; Z79.01 Long term (current) use of anticoagulants
CPT/HCPCS: 36415; 73140; 80053; 83605; 85025; 85610; 85652; 96365; 96375; 99284; J0696; J2405; J7030; U0002

== ENCOUNTER 2020-09-01 17:33 | Emergency (ER) | payer MEDICARE, BC ==
[2020-09-01] MEDS ORDERED: diphenhydrAMINE 50 MG/ML SDV IVPUSH ONE (18:08)
[2020-09-01] MEDS ORDERED: Famotidine 20 MG/2 ML SDV IVPUSH ONE (18:08)
[2020-09-01] MEDS ORDERED: Sodium Chloride 0.9% 1,000 ML IV ONE (18:08)
[2020-09-01] MEDS ORDERED: Metoclopramide 10 MG/2 ML SDV IVPUSH ONE (18:08)
[2020-09-01] MEDS ORDERED: HYDROmorphone 0.5 MG/0.5 ML Syringe IVPUSH ONE (18:09)
--- NOTE | 2020-09-01 18:17 | EDM.PDOC ---
ED HPI GENERAL MEDICAL PROBLEM - General Chief Complaint: General Stated Complaint: WEAK/ SHAKEY /RASH Time Seen by Provider: 09/01/20 17:46 Source of Information: Reports: Patient, RN Notes Reviewed History Limitations: Reports: No Limitations - History of Present Illness INITIAL COMMENTS - FREE TEXT/NARRATIVE: Patient is a 69-year-old female who presents to the ED for her multiple symptoms. Patient notes that since Thursday, she has had a headache, shakiness, weakness, a rash that is blotchy and itches all over her body, some shortness of breath, and some urinary complaints. Patient is being treated with IV Rocephin for a finger infection, her last dose was earlier today at around noon. She is to be on this for roughly 1 more week. She does have a follow-up with her orthopedic doctor, sometime this week, to see if they can discontinue the antibiotics. The patient has been using Benadryl and cetirizine for her rash, but nothing seems to really make it any better. She states it is itchy, so much that she just wants to itch her skin off. Notes that it is worse on her arms and legs seems to be on the posterior surface mainly. Patient's not had any fevers at home. She does state that she feels she is drinking enough water, but notes that it still hurts to pee. She states that her finger throbs as well, she hasn't noticed any drainage from the finger but everything seems to be healing well. Headache Pain Score (Numeric/FACES): 9 - Related Data Allergies Allergy/AdvReac Type Severity Reaction Status Date / Time prochlorperazine Allergy Severe Respiratory Verified 09/01/20 17:42 Distress meperidine Allergy Intermediate Hives Verified 09/01/20 17:42 propoxyphene Allergy Intermediate Hives Verified 09/01/20 17:42 penicillin V Allergy Unknown Cannot Verified 09/01/20 17:42 Remember codeine Allergy Hives Verified 09/01/20 17:42 lidocaine [From Lidoderm] Allergy Rash Verified 09/01/20 17:42 acetaminophen AdvReac Mild Nausea and Verified 09/01/20 17:42 [From Darvocet-N] Vomiting fentanyl AdvReac Mild Nausea and Verified 09/01/20 17:42 Vomiting polyethylene glycol AdvReac Mild Nausea and Verified 09/01/20 17:42 [From Golytely] Vomiting polyethylene glycol 3350 AdvReac Mild Nausea and Verified 09/01/20 17:42 [From Golytely] Vomiting potassium chloride AdvReac Mild Nausea and Verified 09/01/20 17:42 [From Golytely] Vomiting sodium [From Golytely] AdvReac Mild Nausea and Verified 09/01/20 17:42 Vomiting sodium bicarbonate AdvReac Nausea and Verified 09/01/20 17:42 [From Golytely] Vomiting sodium chloride AdvReac Nausea and Verified 09/01/20 17:42 [From Golytely] Vomiting sodium sulfate AdvReac Nausea and Verified 09/01/20 17:42 [From Golytely] Vomiting sumatriptan AdvReac Nausea and Verified 09/01/20 17:42 Vomiting Home Meds: Home Meds Aspirin [Ecotrin EC] 81 mg PO DAILY 08/03/18 [History] Cholecalciferol (Vitamin D3) [Vitamin D3] 2,000 unit PO DAILY 08/03/18 [History] Fluticasone/Vilanterol [Breo Ellipta 100-25 MCG Inhalation Kit] 1 inh INH DAILY 08/03/18 [History] Xswoknryyq-Bhgn-Ncfvhonnzo Ext 1 dose TOP DAILY PRN 08/03/18 [History] clonazePAM [Klonopin] 2 mg PO BEDTIME 08/03/18 [History] traMADol HCl [Tramadol HCl ER] 200 mg PO BEDTIME 08/03/18 [History] Dicyclomine [Bentyl] 20 mg PO QID 07/12/19 [History] Fluticasone Propionate [Flonase] 1 puff NASBOTH DAILY 07/12/19 [History] cycloSPORINE [Restasis] 1 drop EYEBOTH BID 07/12/19 [History] polyethylene glycoL 3350 [MiraLAX] 17 gm PO DAILY 07/12/19 [History] Enoxaparin [Lovenox] 80 mg SUBCUT BID 07/13/19 [History] Potassium Chloride 10 meq PO DAILY #14 capsule.er 03/08/20 [Rx] Albuterol Sulfate [Albuterol Sulfate HFA] 1 puff IH Q4H PRN 08/11/20 [History] Calcium Carbonate [Calcium] 600 mg PO DAILY 08/11/20 [History] Fluconazole 150 mg PO ASDIRECTED 08/11/20 [History] Furosemide [Lasix] 10 mg PO DAILY 08/11/20 [History] Loratadine/Pseudoephedrine [Allergy Relief D-24Hr Tablet] 1 tab PO DAILY 08/11/20 [History] Ondansetron [Zofran] 4 mg SL Q6H PRN 08/11/20 [History] Venlafaxine [Effexor] 112.5 mg PO DAILY 08/11/20 [History] Warfarin [Coumadin] 4 mg PO DAILY 08/11/20 [History] rOPINIRole [Requip] 2 mg PO BEDTIME 08/11/20 [History] traMADol [Ultram] 50 mg PO TID PRN 08/11/20 [History] Past Medical History HEENT History: Reports: Impaired Vision Cardiovascular History: Reports: Angina, High Cholesterol, Other (See Below) Other Cardiovascular History: aortic valve replacement, palpitations Respiratory History: Reports: Asthma Gastrointestinal History: Reports: Other (See Below) Other Gastrointestinal History: abdominal pain, esophageal spasm, dysphagia, constipation Genitourinary History: Reports: Other (See Below) Other Genitourinary History: urinary frequency Musculoskeletal History: Reports: Arthritis, Back Pain, Chronic, Neck Pain, Chronic, Osteoarthritis Other Musculoskeletal History: restless leg syndrome, carpal tunnel syndrome, shoulder pain Neurological History: Reports: Migraines Other Neuro History: cervical radiculitis, cervical and lumbar fusion, laminectomy discectomy Psychiatric History: Reports: Anxiety Endocrine/Metabolic History: Reports: Osteopenia Hematologic History: Reports: Anticoagulation Therapy - Infectious Disease History Infectious Disease History: Reports: C-Difficile - Past Surgical History HEENT Surgical History: Reports: Adenoidectomy, Tonsillectomy Cardiovascular Surgical History: Reports: Valve Replacement, Other (See Below) Other Cardiovascular Surgeries/Procedures: mechanical aortic valve placement GI Surgical History: Reports: Appendectomy, Colonoscopy, EGD, Hernia Repair/Other, Other (See Below) Other GI Surgeries/Procedures: esophagus stretching Female Surgical History: Reports: Hysterectomy Musculoskeletal Surgical History: Reports: Carpal Tunnel, Other (See Below) Other Musculoskeletal Surgeries/Procedures:: back surgery x3 Social & Family History - Tobacco Use Tobacco Use Status *Q: Never Tobacco User Second Hand Smoke Exposure: No - Caffeine Use Caffeine Use: Reports: Coffee - Recreational Drug Use Recreational Drug Use: No ED ROS GENERAL - Review of Systems Review Of Systems: Comprehensive ROS is negative, except as noted in HPI. ED EXAM, GENERAL - Physical Exam Exam: See Below Exam Limited By: No Limitations General Appearance: Alert, WD/WN, No Apparent Distress, Anxious (slight generalized) Throat/Mouth: Normal Inspection, Normal Lips, Normal Teeth, Normal Gums, Normal Oropharynx, Normal Voice, No Airway Compromise Respiratory/Chest: No Respiratory Distress, Lungs Clear, Normal Breath Sounds, No Accessory Muscle Use, Chest Non-Tender Cardiovascular: Normal Peripheral Pulses, Regular Rate, Rhythm, No Edema Peripheral Pulses: 2+: Radial (L), Radial (R) GI/Abdominal: Normal Bowel Sounds, Soft, No Distention, No Mass, Tender (generalized) Extremities: Normal Inspection, Normal Capillary Refill Neurological: Alert, Oriented, Normal Cognition, No Motor/Sensory Deficits Psychiatric: Normal Affect, Normal Mood Skin Exam: Warm, Dry, Intact, Normal Color, No Rash Course - Vital Signs Last Recorded V/S: Last Vital Signs Temp 101.6 F H 09/01/20 18:37 Pulse 94 09/01/20 18:37 Resp 16 09/01/20 17:38 BP 130/68 09/01/20 18:37 Pulse Ox 95 09/01/20 18:37 - Orders/Labs/Meds Orders: Active Orders 24 hr Category Date Time Status Fingers Second Digit Rt F6 [CR] Stat Exams 09/01/20 19:02 Taken CULTURE BLOOD [BC] Stat Lab 09/01/20 21:07 Ordered CULTURE BLOOD [BC] Stat Lab 09/01/20 21:07 Ordered INR,PT,PROTHROMBIN TIME [COAG] Stat Lab 09/01/20 21:05 Ordered PTT,PARTIAL THROMBOPLSTIN TIME [COAG] Stat Lab 09/01/20 21:05 Ordered Blood Culture x2 Reflex Set [OM.PC] Stat Oth 09/01/20 21:07 Ordered Labs: Laboratory Tests 09/01/20 09/01/20 09/01/20 Range/Units 18:19 18:19 18:19 WBC 4.98 (3.98-10.04) K/mm3 RBC 3.45 L (3.98-5.22) M/mm3 Hgb 9.1 L (11.2-15.7) gm/dl Hct 29.9 L (34.1-44.9) % MCV 86.7 (79.4-94.8) fl MCH 26.4 (25.6-32.2) pg MCHC 30.4 L (32.2-35.5) g/dl RDW Std Deviation 62.0 H (36.4-46.3) fL Plt Count 207 (182-369) K/mm3 MPV 10.0 (9.4-12.3) fl Neut % (Auto) 82.8 H (34.0-71.1) % Lymph % (Auto) 4.2 L (19.3-51.7) % Mellette % (Auto) 10.4 (4.7-12.5) % Eos % (Auto) 2.2 (0.7-5.8) Baso % (Auto) 0.2 (0.1-1.2) % Neut # (Auto) 4.12 (1.56-6.13) K/mm3 Lymph # (Auto) 0.21 L (1.18-3.74) K/mm3 Mellette # (Auto) 0.52 H (0.24-0.36) K/mm3 Eos # (Auto) 0.11 (0.04-0.36) K/mm3 Baso # (Auto) 0.01 (0.01-0.08) K/mm3 ESR 35 H (0-20) mm/hr Sodium 135 L (136-145) mEq/L Potassium 3.9 (3.5-5.1) mEq/L Chloride 99 (98-107) mEq/L Carbon Dioxide 25 (21-32) mEq/L Anion Gap 14.9 (5-15) BUN 18 (7-18) mg/dL Creatinine 0.9 (0.55-1.02) mg/dL Est Cr Clr Drug Dosing TNP Estimated GFR (MDRD) > 60 (>60) mL/min BUN/Creatinine Ratio 20.0 H (14-18) Glucose 124 H (80-115) mg/dL Calcium 7.9 L (8.5-10.1) mg/dL Total Bilirubin 0.2 (0.2-1.0) mg/dL AST 58 H (15-37) U/L ALT 38 (14-59) U/L Alkaline Phosphatase 90 (46-116) U/L C-Reactive Protein 16.3 H* (<1.0) mg/dL Total Protein 6.2 L (6.4-8.2) g/dl Albumin 2.8 L (3.4-5.0) g/dl Globulin 3.4 gm/dL Albumin/Globulin Ratio 0.8 L (1-2) Urine Color (Yellow) Urine Appearance (Clear) Urine pH (5.0-8.0) Ur Specific Hardy (1.005-1.030) Urine Protein (Negative) Urine Glucose (UA) (Negative) Urine Ketones (Negative) Urine Occult Blood (Negative) Urine Nitrite (Negative) Urine Bilirubin (Negative) Urine Urobilinogen (0.2-1.0) Ur Leukocyte Esterase (Negative) Urine RBC (0-5) /hpf Urine WBC (0-5) /hpf Ur Squamous Epith Cells (0-5) /hpf Urine Bacteria (FEW) /hpf Urine Mucus (FEW) /hpf Influenza Type A RNA (NEGATIVE) Influenza Type B RNA (NEGATIVE) SARS-CoV-2 RNA (PB) (NEGATIVE) 09/01/20 09/01/20 Range/Units 18:27 20:20 WBC (3.98-10.04) K/mm3 RBC (3.98-5.22) M/mm3 Hgb (11.2-15.7) gm/dl Hct (34.1-44.9) % MCV (79.4-94.8) fl MCH (25.6-32.2) pg MCHC (32.2-35.5) g/dl RDW Std Deviation (36.4-46.3) fL Plt Count (182-369) K/mm3 MPV (9.4-12.3) fl Neut % (Auto) (34.0-71.1) % Lymph % (Auto) (19.3-51.7) % Mellette % (Auto) (4.7-12.5) % Eos % (Auto) (0.7-5.8) Baso % (Auto) (0.1-1.2) % Neut # (Auto) (1.56-6.13) K/mm3 Lymph # (Auto) (1.18-3.74) K/mm3 Mellette # (Auto) (0.24-0.36) K/mm3 Eos # (Auto) (0.04-0.36) K/mm3 Baso # (Auto) (0.01-0.08) K/mm3 ESR (0-20) mm/hr Sodium (136-145) mEq/L Potassium (3.5-5.1) mEq/L Chloride (98-107) mEq/L Carbon Dioxide (21-32) mEq/L Anion Gap (5-15) BUN (7-18) mg/dL Creatinine (0.55-1.02) mg/dL Est Cr Clr Drug Dosing Estimated GFR (MDRD) (>60) mL/min BUN/Creatinine Ratio (14-18) Glucose (80-115) mg/dL Calcium (8.5-10.1) mg/dL Total Bilirubin (0.2-1.0) mg/dL AST (15-37) U/L ALT (14-59) U/L Alkaline Phosphatase (46-116) U/L C-Reactive Protein (<1.0) mg/dL Total Protein (6.4-8.2) g/dl Albumin (3.4-5.0) g/dl Globulin gm/dL Albumin/Globulin Ratio (1-2) Urine Color Yellow (Yellow) Urine Appearance Clear (Clear) Urine pH 6.0 (5.0-8.0) Ur Specific Hardy 1.020 (1.005-1.030) Urine Protein Negative (Negative) Urine Glucose (UA) Negative (Negative) Urine Ketones Negative (Negative) Urine Occult Blood 2+ H (Negative) Urine Nitrite Negative (Negative) Urine Bilirubin Negative (Negative) Urine Urobilinogen 0.2 (0.2-1.0) Ur Leukocyte Esterase Negative (Negative) Urine RBC 5-10 H (0-5) /hpf Urine WBC 0-5 (0-5) /hpf Ur Squamous Epith Cells 0-5 (0-5) /hpf Urine Bacteria Few (FEW) /hpf Urine Mucus Not seen (FEW) /hpf Influenza Type A RNA Negative (NEGATIVE) Influenza Type B RNA Negative (NEGATIVE) SARS-CoV-2 RNA (PB) Negative (NEGATIVE) Meds: Medications Discontinued Medications Generic Name Dose Route Start Last Admin Trade Name Freq PRN Reason Stop Dose Admin Diphenhydramine HCl 25 mg 09/01/20 18:08 09/01/20 18:26 Diphenhydramine 50 Mg/Ml Sdv IVPUSH 09/01/20 18:09 25 mg ONETIME ONE Administration Famotidine 20 mg 09/01/20 18:08 09/01/20 18:25 Famotidine 20 Mg/2 Ml Sdv IVPUSH 09/01/20 18:09 20 mg ONETIME ONE Administration Hydromorphone HCl 0.5 mg 09/01/20 18:09 09/01/20 18:25 Hydromorphone 0.5 Mg/0.5 Ml Syringe IVPUSH 09/01/20 18:10 0.5 mg ONETIME ONE Administration Sodium Chloride 1,000 mls @ 999 mls/hr 09/01/20 18:08 09/01/20 18:25 Normal Saline IV 09/01/20 19:08 999 mls/hr ONETIME ONE Administration Metoclopramide HCl 10 mg 09/01/20 18:08 09/01/20 18:28 Metoclopramide 10 Mg/2 Ml Sdv IVPUSH 09/01/20 18:09 10 mg ONETIME ONE Administration - Re-Assessments/Exams Free Text/Narrative Re-Assessment/Exam: 09/01/20 18:19 Patient presents to the ER for the evaluation of her multiple symptoms, due to the generalized nature of her symptoms, and her having been in and out of the hospital multiple times, we will screen her for COVID-19 at today's visit, get some baseline labs, give her some fluids, nausea medications, some Benadryl, Pepcid, and 0.5 mg Dilaudid for ongoing management. 09/01/20 21:14 Patient's laboratory evaluation has resulted, along with a finger x-ray. Patient's white count is 4.98 with 80% neutrophils. Sed rate is elevated in the 30s, CRP elevated at 16. The x-ray demonstrates joint space narrowing of the distal interphalangeal joint, clinical correlation to exclude joint infection suggested. Patient did have a fever after being in the ER, 101.3 F I did talk with [facility] in [place], and they do recommend transfer to their facility for ongoing management versus surgical amputation or otherwise for the finger. They note that it looks like it is not getting better as expected. I did speak with Dr. Nugent, Ortho on-call, and Dr. Weaver, hospitalist front load trash truck driver ultimately accepted for transfer. Patient would want to go by private vehicle, her is okay with this at this time I will make PAULO Osei aware that they are going by private vehicle Departure - Departure Time of Disposition: 21:16 Disposition: DC/Tfer to Acute Hospital 02 Condition: Fair Clinical Impression: Finger infection, Osteomyelitis of finger of right hand - Discharge Information Referrals: Delmi Luong, [employer] [Primary Care Provider] - Forms: ED Department Discharge Sepsis Event Note (ED) - Evaluation Sepsis Screening Result: No Definite Risk - Focused Exam Vital Signs: Vital Signs Temp Pulse Resp BP Pulse Ox 09/01/20 18:37 101.6 F H 94 130/68 95 09/01/20 17:38 98.2 F 105 H 16 152/69 H 92 L - My Orders Last 24 Hours: My Active Orders 09/01/20 19:02 Fingers Second Digit Rt F6 [CR] Stat 09/01/20 21:05 INR,PT,PROTHROMBIN TIME [COAG] Stat PTT,PARTIAL THROMBOPLSTIN TIME [COAG] Stat 09/01/20 21:07 CULTURE BLOOD [BC] Stat CULTURE BLOOD [BC] Stat Blood Culture x2 Reflex Set [OM.PC] Stat - Assessment/Plan Last 24 Hours: My Active Orders 09/01/20 19:02 Fingers Second Digit Rt F6 [CR] Stat 09/01/20 21:05 INR,PT,PROTHROMBIN TIME [COAG] Stat PTT,PARTIAL THROMBOPLSTIN TIME [COAG] Stat 09/01/20 21:07 CULTURE BLOOD [BC] Stat CULTURE BLOOD [BC] Stat Blood Culture x2 Reflex Set [OM.PC] Stat
[2020-09-01 19:12] LABS: CORONAVIRUS COVID-19 NAA NEGATIVE (NEGATIVE)
--- NOTE | 2020-09-03 08:42 | CR ---
Right second finger: 4 views of the right second finger were obtained. Comparison: Prior right second finger study of 08/11/20. Findings: Joint space narrowing is noted within the second finger most prominent within the DIP joint. Osteopenia is noted. No acute fracture, dislocation or other bony abnormality is seen. Soft tissue swelling is present. Impression: 1. Degenerative change as noted above. 2. Soft tissue swelling mostly distally within the right second finger. Diagnostic code #3 I agree with preliminary report from [facility], finalized on 09/01/20, 9:04 PM CDT, code 1
== END 2020-09-01 21:45 ==
LOC: JD.ED 17:33
DX: L08.9 Local infection of the skin and subcutaneous tissue, unspecified (principal); M86.9 Osteomyelitis, unspecified; E78.00 Pure hypercholesterolemia, unspecified; J45.909 Unspecified asthma, uncomplicated; M19.90 Unspecified osteoarthritis, unspecified site; G25.81 Restless legs syndrome; Z88.8 Allergy status to other drugs, medicaments and biological substances; Z88.5 Allergy status to narcotic agent; Z88.0 Allergy status to penicillin; Z88.4 Allergy status to anesthetic agent; Z91.048 Other nonmedicinal substance allergy status; Z79.82 Long term (current) use of aspirin; Z79.899 Other long term (current) drug therapy; Z79.01 Long term (current) use of anticoagulants; Z20.822 Contact with and (suspected) exposure to COVID-19
CPT/HCPCS: 0240U; 36415; 73140; 80053; 81001; 85025; 85610; 85652; 85730; 86140; 87040; 96374; 96375; 99285; J1170; J1200; J2765; J3490; J7030; 99284

== ENCOUNTER 2022-11-16 18:59 | Emergency (ER) | payer MEDICARE, BC ==
[2022-11-16 20:35] LABS: BASOPHILS ABSOLUTE AUTO 0.04 K/mm3 (0.01-0.08); BASOPHILS PERCENT AUTO 0.6 % (0.1-1.2); EOSINOPHILS ABSOLUTE AUTO 0.14 K/mm3 (0.04-0.36); HEMATOCRIT 38.8 % (34.1-44.9); HEMOGLOBIN 12.5 gm/dl (11.2-15.7); IMMATURE GRAN ABSOLUTE AUTO 0.01 K/mm3 (0.00-0.10); IMMATURE GRAN PERCENT AUTO 0.1 % (<=1.0); LYMPHOCYTES ABSOLUTE AUTO 0.78 K/mm3 (1.18-3.74); LYMPHOCYTES PERCENT AUTO 11.1 % (19.3-51.7); MEAN CORPUSCULAR HEMOGLOBIN 31.5 pg (25.6-32.2); MEAN CORPUSCULAR HGB CONC 32.2 g/dl (32.2-35.5); MEAN CORPUSCULAR VOLUME 97.7 fl (79.4-94.8); MEAN PLATELET VOLUME 9.4 fl (9.4-12.3); MONOCYTES ABSOLUTE AUTO 0.66 K/mm3 (0.24-0.36); MONOCYTES PERCENT AUTO 9.4 % (4.7-12.5); NEUTROPHILS ABSOLUTE AUTO 5.37 K/mm3 (1.56-6.13); NEUTROPHILS PERCENT AUTO 76.8 % (34.0-71.1); PLATELET COUNT,PLT 253 K/mm3 (182-369); RED BLOOD CELL COUNT 3.97 M/mm3 (3.98-5.22)
[2022-11-16 20:57] LABS: A/G RATIO 1.1 (1-2); ALANINE AMINOTRANSFERASE,ALT 17 U/L (14-59); ALBUMIN 3.3 g/dl (3.4-5.0); ALKALINE PHOSPHATASE 91 U/L (46-116); ANION GAP 11.6 (5-15); ASPARTATE AMNIOTRANSFERASE,AST 20 U/L (15-37); BILIRUBIN TOTAL 0.2 mg/dL (0.2-1.0); BLOOD UREA NITROGEN,BUN 22 mg/dL (7-18); BUN/CREATININE RATIO 31.4 (14-18); C-REACTIVE PROTEIN < 0.2 mg/dL (<1.0); CALCIUM 8.4 mg/dL (8.5-10.1); CARBON DIOXIDE,CO2 27 mEq/L (21-32); CHLORIDE,CL 105 mEq/L (98-107); CREATININE 0.7 mg/dL (0.55-1.02); EST CRCL DRUG DOSING (CG) 71.68 mL/min; ESTIMATED GFR 92 mL/min (>60); GLUCOSE RANDOM 100 mg/dL (70-99); POTASSIUM,K 3.6 mEq/L (3.5-5.1); PROTEIN TOTAL,TP 6.4 g/dl (6.4-8.2); SODIUM,NA 140 mEq/L (136-145)
[2022-11-16] MEDS ORDERED: Acetaminophen/oxyCODONE 325-5 MG Tab PO ONE (23:28)
[2022-11-17] MEDS ORDERED: NIFEdipine 30 MG Tab.ER PO ONE (23:27)
== END 2022-11-16 23:45 | disposition home or self-care (01) ==
LOC: JD.ED 18:59
DX: I73.00 Raynaud's syndrome without gangrene (principal); E78.00 Pure hypercholesterolemia, unspecified; J45.909 Unspecified asthma, uncomplicated; Z79.82 Long term (current) use of aspirin; Z79.01 Long term (current) use of anticoagulants; Z79.899 Other long term (current) drug therapy; Z88.8 Allergy status to other drugs, medicaments and biological substances; Z88.5 Allergy status to narcotic agent; Z88.0 Allergy status to penicillin
CPT/HCPCS: 36415; 73130-26-LT; 73130-LT; 80053; 85025; 85652; 86140; 99283